=== PATIENT | male | born 1950 | race Caucasian/White ===

== ENCOUNTER 2020-10-05 08:00 | Outpatient (REF) | payer MEDICARE, SELFPAY ==
[2020-10-05 13:17] LABS: Ferritin 80 ng/mL (20-250)
== END 2020-10-05 08:01 | disposition home or self-care (01) ==
LOC: HO.BBR 08:00
PROVIDERS: PCP Internal Medicine; Visit Provider Internal Medicine Gastroenterology
DX: E83.110 Hereditary hemochromatosis (principal)
CPT/HCPCS: 36415; 82728

== ENCOUNTER 2021-01-05 07:53 | Outpatient (REF) | payer MEDICARE, SELFPAY | END 2021-01-05 07:54 | disposition home or self-care (01) | LOC: HO.BBR 07:53 | PROVIDERS: Visit Provider Internal Medicine Gastroenterology | DX: Z13.89 Encounter for screening for other disorder (principal) ==

== ENCOUNTER 2021-01-23 09:11 | Outpatient (REF) | payer MEDICARE, SELFPAY ==
[2021-01-23 14:16] LABS: Ferritin 97 ng/mL (20-250)
== END 2021-01-23 09:12 | disposition home or self-care (01) ==
LOC: HO.BBR 09:11
PROVIDERS: Visit Provider Internal Medicine Gastroenterology
DX: E83.110 Hereditary hemochromatosis (principal)
CPT/HCPCS: 36415; 82728

== ENCOUNTER 2021-04-26 07:59 | Outpatient (REF) | payer MEDICARE, SELFPAY ==
[2021-04-26 09:49] LABS: Ferritin 99 ng/mL (20-250)
== END 2021-04-26 08:00 | disposition home or self-care (01) ==
LOC: HO.BBR 07:59
PROVIDERS: Visit Provider Internal Medicine Gastroenterology
DX: E83.110 Hereditary hemochromatosis (principal)
CPT/HCPCS: 36415; 82728

== ENCOUNTER 2021-07-27 08:09 | Outpatient (REF) | payer MEDICARE, SELFPAY ==
[2021-07-27 10:46] LABS: Ferritin 156 ng/mL (20-250)
== END 2021-07-27 08:10 | disposition home or self-care (01) ==
LOC: HO.BBR 08:09
PROVIDERS: PCP Internal Medicine; Visit Provider Internal Medicine Gastroenterology
DX: E83.110 Hereditary hemochromatosis (principal)
CPT/HCPCS: 36415; 82728

== ENCOUNTER 2021-09-21 08:05 | Outpatient (REF) | payer MEDICARE, SELFPAY ==
[2021-09-21 09:39] LABS: Ferritin 131 ng/mL (20-250)
== END 2021-09-21 08:06 | disposition home or self-care (01) ==
LOC: HO.BBR 08:05
PROVIDERS: Visit Provider Internal Medicine Gastroenterology
DX: E83.110 Hereditary hemochromatosis (principal)
CPT/HCPCS: 36415; 82728

== ENCOUNTER 2021-11-16 08:01 | Outpatient (REF) | payer MEDICARE, SELFPAY ==
[2021-11-16 09:58] LABS: Ferritin 80 ng/mL (20-250)
== END 2021-11-16 08:02 | disposition home or self-care (01) ==
LOC: HO.BBR 08:01
PROVIDERS: Visit Provider Internal Medicine Gastroenterology
DX: E83.110 Hereditary hemochromatosis (principal)
CPT/HCPCS: 36415; 82728

== ENCOUNTER 2022-01-11 08:06 | Outpatient (REF) | payer MEDICARE, SELFPAY ==
[2022-01-11 10:45] LABS: Ferritin 88 ng/mL (20-250)
== END 2022-01-11 08:07 | disposition home or self-care (01) ==
LOC: HO.BBR 08:06
PROVIDERS: Visit Provider Internal Medicine Gastroenterology
DX: E83.110 Hereditary hemochromatosis (principal)
CPT/HCPCS: 36415; 82728

== ENCOUNTER 2022-03-13 08:03 | Outpatient (REF) | payer MEDICARE, SELFPAY ==
[2022-03-13 11:36] LABS: Ferritin 81 ng/mL (20-250)
== END 2022-03-13 08:04 | disposition home or self-care (01) ==
LOC: HO.BBR 08:03
PROVIDERS: Visit Provider Internal Medicine Gastroenterology
DX: E83.110 Hereditary hemochromatosis (principal)
CPT/HCPCS: 36415; 82728

== ENCOUNTER 2022-05-08 10:57 | Outpatient (REF) | payer MEDICARE, SELFPAY ==
[2022-05-08 12:34] LABS: Ferritin 46 ng/mL (20-250)
== END 2022-05-08 10:58 | disposition home or self-care (01) ==
LOC: HO.BBR 10:57
PROVIDERS: Visit Provider Internal Medicine Gastroenterology
DX: E83.110 Hereditary hemochromatosis (principal)
CPT/HCPCS: 36415; 82728

== ENCOUNTER 2022-07-04 08:06 | Outpatient (REF) | payer MEDICARE, SELFPAY ==
[2022-07-04 09:51] LABS: Ferritin 51 ng/mL (20-250)
== END 2022-07-04 08:07 | disposition home or self-care (01) ==
LOC: HO.BBR 08:06
PROVIDERS: PCP Family Medicine; Visit Provider Internal Medicine Gastroenterology
DX: E83.110 Hereditary hemochromatosis (principal)
CPT/HCPCS: 36415; 82728

== ENCOUNTER 2022-08-29 09:07 | Outpatient (REF) | payer MEDICARE, SELFPAY | END 2022-08-29 09:08 | disposition home or self-care (01) | LOC: HO.BBR 09:07 | PROVIDERS: Visit Provider Internal Medicine Gastroenterology | DX: Z13.89 Encounter for screening for other disorder (principal) ==

== ENCOUNTER 2022-10-24 08:10 | Outpatient (REF) | payer MEDICARE, SELFPAY ==
[2022-10-24 10:27] LABS: Ferritin 37 ng/mL (20-250)
== END 2022-10-24 08:11 | disposition home or self-care (01) ==
LOC: HO.BBR 08:10
PROVIDERS: Visit Provider Internal Medicine Gastroenterology
DX: E83.110 Hereditary hemochromatosis (principal)
CPT/HCPCS: 36415; 82728

== ENCOUNTER 2022-12-05 08:07 | Outpatient (REF) | payer MEDICARE, SELFPAY ==
[2022-12-05 10:15] LABS: Ferritin 42 ng/mL (20-250)
== END 2022-12-05 08:08 | disposition home or self-care (01) ==
LOC: HO.BBR 08:07
PROVIDERS: Visit Provider Internal Medicine Gastroenterology
DX: E83.110 Hereditary hemochromatosis (principal)
CPT/HCPCS: 36415; 82728

== ENCOUNTER 2023-01-29 08:01 | Outpatient (REF) | payer MEDICARE, SELFPAY ==
[2023-01-29 10:19] LABS: Ferritin 29 ng/mL (20-250)
== END 2023-01-29 08:02 | disposition home or self-care (01) ==
LOC: HO.BBR 08:01
PROVIDERS: Visit Provider Internal Medicine Gastroenterology
DX: E83.110 Hereditary hemochromatosis (principal)
CPT/HCPCS: 36415; 82728

== ENCOUNTER 2023-03-26 08:04 | Outpatient (REF) | payer MEDICARE, SELFPAY ==
[2023-03-26 10:00] LABS: Ferritin 26 ng/mL (20-250)
== END 2023-03-26 08:05 | disposition home or self-care (01) ==
LOC: HO.BBR 08:04
PROVIDERS: Visit Provider Internal Medicine Gastroenterology
DX: E83.110 Hereditary hemochromatosis (principal)
CPT/HCPCS: 36415; 82728

== ENCOUNTER 2023-05-21 08:14 | Outpatient (REF) | payer MEDICARE, SELFPAY ==
[2023-05-21 10:15] LABS: Ferritin 74 ng/mL (20-250)
== END 2023-05-21 08:15 | disposition home or self-care (01) ==
LOC: HO.BBR 08:14
PROVIDERS: Visit Provider Internal Medicine Gastroenterology
DX: E83.110 Hereditary hemochromatosis (principal)
CPT/HCPCS: 36415; 82728

== ENCOUNTER 2023-07-25 11:01 | Outpatient (REF) | payer MEDICARE, SELFPAY | END 2023-07-25 11:02 | disposition home or self-care (01) | LOC: HO.BBR 11:01 | PROVIDERS: Visit Provider Internal Medicine Gastroenterology | DX: Z13.89 Encounter for screening for other disorder (principal) ==

== ENCOUNTER 2023-09-26 08:00 | Outpatient (REF) | payer MEDICARE, SELFPAY ==
[2023-09-26 09:41] LABS: Ferritin 38 ng/mL (20-250)
== END 2023-09-26 08:01 | disposition home or self-care (01) ==
LOC: HO.BBR 08:00
PROVIDERS: Visit Provider Internal Medicine Gastroenterology
DX: E83.110 Hereditary hemochromatosis (principal)
CPT/HCPCS: 36415; 82728

== ENCOUNTER 2023-11-21 08:03 | Outpatient (REF) | payer MEDICARE, SELFPAY ==
[2023-11-21 10:21] LABS: Ferritin 25 ng/mL (20-250)
== END 2023-11-21 08:04 | disposition home or self-care (01) ==
LOC: HO.BBR 08:03
PROVIDERS: PCP Family Medicine; Visit Provider Internal Medicine Gastroenterology
DX: E83.110 Hereditary hemochromatosis (principal)
CPT/HCPCS: 36415; 82728

== ENCOUNTER 2024-01-23 08:09 | Outpatient (REF) | payer MEDICARE, SELFPAY ==
[2024-01-23 09:49] LABS: Ferritin 22 ng/mL (20-250)
== END 2024-01-23 08:10 | disposition home or self-care (01) ==
LOC: HO.BBR 08:09
PROVIDERS: PCP Family Medicine; Visit Provider Internal Medicine Gastroenterology
DX: E83.110 Hereditary hemochromatosis (principal)
CPT/HCPCS: 36415; 82728

== ENCOUNTER 2024-03-20 07:58 | Outpatient (REF) | payer MEDICARE, SELFPAY ==
[2024-03-20 09:52] LABS: Ferritin 21 ng/mL (20-250)
== END 2024-03-20 07:59 | disposition home or self-care (01) ==
LOC: HO.BBR 07:58
PROVIDERS: PCP Family Medicine; Visit Provider Internal Medicine Gastroenterology
DX: E83.110 Hereditary hemochromatosis (principal)
CPT/HCPCS: 36415; 82728

== ENCOUNTER 2024-05-20 08:08 | Outpatient (REF) | payer MEDICARE, SELFPAY ==
[2024-05-20 09:56] LABS: Ferritin 17 ng/mL (20-250)
== END 2024-05-20 08:09 | disposition home or self-care (01) ==
LOC: HO.BBR 08:08
PROVIDERS: PCP Family Medicine; Visit Provider Internal Medicine Gastroenterology
DX: E83.110 Hereditary hemochromatosis (principal)
CPT/HCPCS: 36415; 82728

== ENCOUNTER 2024-07-16 07:58 | Outpatient (REF) | payer MEDICARE, SELFPAY ==
[2024-07-16 10:16] LABS: Ferritin 18 ng/mL (20-250)
== END 2024-07-16 07:59 | disposition home or self-care (01) ==
LOC: HO.BBR 07:58
PROVIDERS: PCP Family Medicine; Visit Provider Internal Medicine Gastroenterology
DX: E83.110 Hereditary hemochromatosis (principal)
CPT/HCPCS: 36415; 82728

== ENCOUNTER 2024-09-17 08:04 | Outpatient (REF) | payer MEDICARE, SELFPAY ==
[2024-09-17 10:21] LABS: Ferritin 17 ng/mL (20-250)
== END 2024-09-17 08:05 | disposition home or self-care (01) ==
LOC: HO.BBR 08:04
PROVIDERS: PCP Family Medicine; Visit Provider Internal Medicine Gastroenterology
DX: E83.110 Hereditary hemochromatosis (principal)
CPT/HCPCS: 36415; 82728

== ENCOUNTER 2024-11-12 08:04 | Outpatient (REF) | payer MEDICARE, SELFPAY ==
[2024-11-12 09:55] LABS: Ferritin 17 ng/mL (20-250)
== END 2024-11-12 08:05 | disposition home or self-care (01) ==
LOC: HO.BBR 08:04
PROVIDERS: PCP Family Medicine; Visit Provider Internal Medicine Gastroenterology
DX: E83.110 Hereditary hemochromatosis (principal)
CPT/HCPCS: 36415; 82728

== ENCOUNTER 2025-01-14 14:06 | Outpatient (REF) | payer MEDICARE, SELFPAY ==
--- OUTSIDE RECORDS SUMMARY | 2025-01-14 15:15 | XMS_ITS | Encounter Summary ---
Author Organization [facility] and [facility] Address [address] [place] [phone] Care Team Providers Care Adhesive Bandage Machine Operator Name Role Phone Sahil Ryan MD Primary Care Provider Unavaila ble Encounter Details Date Type Department Care Team (Late st Contact Info) Description 04/09/2016 Scanned Document Dermatologic Surgery [address] [id number] Jos Sewell MD 160 [facility] 104 [place] [phone] Social History Tobacco Use Types Packs/Day Years Used Date Smoking Tobacco: Never Alcohol Use Standard Drinks/Week Comments Yes 0 (1 standard drink = 0.6 oz pur e alcohol) Sex and Gender Information Value Date Recorded Sex Assigned at Not on file Legal Sex Male 7:41 AM EST Gender Identity Not on file Sexual Orientation Not on file documented as of this encounter Plan of Treatment Not on file documented as of this encounter Procedures Procedure Name Priority Date/Time Associated Diagnosis Comments PATHOLOGY/CYTOLOGY SCAN Routine 12/27/2015 documented in this encounter Results * Pathology/Cytology Scan (12/27/2015) us Jos Sewell MD PATHOLOGY/CYTOLOGY ORDERABLES Final Result [facility] [place], [place], [facility] documented in this encounter Visit Diagnoses Not on filedocumented in this encounter Care Teams Adhesive Bandage Machine Operator Relationship Specialty Start Date End Date Sahil Ryan MD PCP - General Internal Medicine 03/09/13 documented as of this encounter
--- OUTSIDE RECORDS SUMMARY | 2025-01-14 15:15 | XMS_ITS | Continuity of Care Document ---
Author Organization [facility] Address [address] [facility] [address] [place] [phone] Phone Care Team Providers Care Cook Supervisor Name Role Phone Jessenia MANCILLA, Akhil Unavailable Unavailable Allergies, Adverse Reactions, Alerts Substance Reaction Status Criticality penicillin G Active No Information Procedures Procedure Date Duplex Scan-extrem Veins; Uni/ 15 Inj Scleros Solut; Mx Veins 1 5 Ultrason Guidan Needle Bx-rad 5 Duplex Scan-extrem Veins; Uni/ 15 Endovenous Laser, Vein Endovenous Laser, Vein Endovenous Laser, Vein Office/Outpt E&M Established 25 Mins May Duplex Scan-extrem Veins; Uni/ 15 Duplex Scan-extrem Veins; / 15 Endovenous Laser, Vein Endovenous Laser, Vein Endovenous Laser, Vein Endovenous Laser, Vein Duplex Scan-extrem Veins; Uni/ 15 Endovenous Rf, Vein Duplex Scan-extrem Veins; / 15 Endovenous Rf, Vein Unlisted Proc Vascular Surg Office/Oupt E&M New Pt 45 Mins 15 Duplex Scan-extrem Veins; Comp 15 Advance Directives Directive Yes / No Effective Date File Name No Information Encounters Encounter Description Practice Location Reason(s) For Visit Diagnoses Date Provider Providers Copied on Encounter [facility], [address] [place] [address], [id number], tel:[phone] [place] No Information 5 Jessenia Landaverde. [address] [place] [address], [id number] , . tel: [phone] Referring Provider: Akhil Millard, [address], [address] . tel:[phone] [facility], [address] [place] [address], [id number], tel:[phone] [place] No Information 5 Jessenia Landaverde. [address] [place] [address], [id number] , [place]. tel: [phone] Referring Provider: Akhil Millard, [address] [place] [address], [id number] . tel:[phone] [facility], [address] [place] [address], [id number], tel:[phone] [place] No Information 5 Jessenia Landaverde. [address] [place] [address], [id number] , [place]. tel: [phone] Referring Provider: Akhil Millard, [address] [place] [address], [id number] . tel:[phone] [facility], [address] [place] [address], [id number], [place] tel:[phone] [place] Varicose Vein Of Leg Nos 5 Jessenia Landaverde. [address] [place] [address], [id number] , [place]. tel: [phone] Referring Provider: Akhil Millard, [address] [place] [address], [address] . tel:[phone] [facility], [address] [place] [address], [id number], [place] tel:[phone] [place] No Information 5 Jessenia Landaverde. [address] [place] [address], [id number] , [place]. tel: [phone] Referring Provider: Akhil Millard, [address] [place] [address], [id number] . tel:[phone] [facility], [address] [place] [address], [id number], [place] tel:[phone] [place] No Information 5 Jessenia Landaverde. [address] [place] [address], [id number] , [place]. tel: [phone] Referring Provider: Akhil Millard, [address] [place] [address], [id number] . tel:[phone] [facility], [address] [place] [address], [id number], [place] tel:[phone] [place] No Information 5 Jessenia Landaverde. [address], [id number] , [place]. tel: [phone] Referring Provider: Akhil Millard, [address] [place] [address], [id number] . tel:[phone] Office/Outpt E&M Established 25 Mins [facility], [address] [place] [address], [id number], [place] tel:[phone] [place] Swelling Of LimbLeg Varicosity W InflamVenous (peripheral) insufficiency, unspecified 5 Jessenia Landaverde. [address], [id number] , [place]. tel:[phone] Referring Provider: Akhil Millard, [address], [address] . tel:[phone] [facility], [address] [place] [address], [id number], tel:[phone] [place] No Information 5 Jessenia Landaverde. [address], [id number] , [place]. tel:[phone] Referring Provider: Akhil Millard, [address], [address] . tel:[phone] [facility], [address] [place] [address], [id number], [place] tel:[phone] [place] No Information 5 Jessenia Landaverde. [address] [place] [address], [id number] , [place]. tel:[phone] Referring Provider: Akhil Millard, [address], [address] . tel:[phone] [facility], [address] [place] [address], [id number], [place] tel:[phone] [place] No Information 5 Jessenia Landaverde. [address] [place] [address], [id number] , [place]. tel: [phone] Referring Provider: Akhil Millard, [address], [address] . tel:[phone] [facility], [address] [place] [address], [id number], [place] tel:[phone] [place] - [place] No Information Diego-3 0-201 5 Jessenia Landaverde. [address] [place] [address], [id number] , . tel: [phone] Referring Provider: Akhil Millard, [address] [place] [address], [address] . tel:[phone] [facility], [address] [place] [address], [id number], tel:[phone] [place] - [place] No Information Diego-2 6-201 5 Jessenia Landaverde. [address] [place] [address], [id number] , . tel: [phone] Referring Provider: Akhil Millard, [address] [place] [address], [address] . tel:[phone] [facility], [address] [place] [address], [id number], tel:[phone] [place] No Information Diego-2 6 5 Jessenia Landaverde. [address] [place] [address], [id number] , . tel: [phone] Referring Provider: Akhil Millard, [address] [place] [address], [address] . tel:[phone] [facility], [address] [place] [address], [id number], tel:[phone] [place] No Information Apr-2 3-201 5 Jessenia Landaverde. [address] [place] [address], [id number] , . tel: [phone] Referring Provider: Akhil Millard, [address] [place] [address], [address] . tel:[phone] [facility], [address] [place] [address], [id number], tel:[phone] [place] No Information Apr- 3 5 Jessenia Landaverde. [address], [id number] , . tel: [phone] Referring Provider: Akhil Millard, [address], [address] . tel:[phone] [facility], [address] [place] [address], [id number], tel:[phone] [place] No Information Apr- 8 5 Jessenia Landaverde. [address] [place] [address], [id number] , . tel: [phone] Referring Provider: Akhil Millard, [address] [place] [address], [address] . tel:[phone] [facility], [address] [place] [address], [id number], tel:[phone] [place] No Information 5 Jessenia Landaverde. [address] [place] [address], [id number] , . tel: [phone] Referring Provider: Akhil Millard, [address] [place] [address], [address] . tel:[phone] [facility], [address] [place] [address], [id number], [place] tel:[phone] [place] No Information 5 Jessenia Landaverde. [address] [place] [address], [id number] , . tel: [phone] Referring Provider: Akhil Millard, [address] [place] [address], [id number] . tel:[phone] [facility], [address] [place] [address], [id number], [place] tel:[phone] [place] No Information 5 Jessenia Landaverde. [address] [place] [address], [id number] , . tel: [phone] Referring Provider: Akhil Millard, [address] [place] [address], [address] . tel:[phone] [facility], [address] [place] [address], [id number], [place] tel:[phone] [place] Leg Varicosity W Inflam 5 Jessenia Landaverde. [address] [place] [address], [id number] , . tel: [phone] Referring Provider: Akhil Millard, [address] [place] [address], [address] . tel:[phone] Office/Oupt E&M New Pt 45 Mins [facility], [address] [place] [address], [id number], [place] tel:[phone] [place] varicose vns low extrem w/othPain In LimbDyschromia NosSwelling Of Limb 5 Jessenia Landaverde. [address], [id number] , [place]. tel: [phone] Referring Provider: Akhil Millard, [address] [place] [address], [id number] . tel:[phone] [facility], [address] [place] [address], [id number], [place] tel:[phone] [place] chronic venous htn without com 5 Jessenia Landaverde. [address] [place] [address], [id number] , [place]. tel: [phone] Referring Provider: Akhil Millard, [address] [place] [address] [address], [place], [address] . tel:[phone] Family History Family Member Type Diagnosis Age At Onset No Information Payers Payer name Insurance type Covered alliance party ID Authorcourtney guzman(s) Medicare [place] [id number] [facility] [id number] Social History Type Description Quantity Date Captured Comments Sex Male Smoking Status No Information Chief Complaint And Reason For Visit No Information Reason For Referral Reason For Referral No Information History Of Present Illness Encounter Date Complaint History Of Prese nt Illness No Information Functional Status Date Functional Assessmen t No Information Instructions Date Instruction Additional Infor damien Continue compression stocking us e Pre and post instructions review ed and provided Continue compression stocking us e Pre and post instructions review ed and provided Assessments Type Assessment Date No Information Patient Care Teams Name Effective Dates (start - stop) Status Members No Information
--- OUTSIDE RECORDS SUMMARY | 2025-01-14 15:15 | XMS_ITS | Encounter Summary ---
Author Organization [facility] and [facility] Address [address] [place] [id number] Care Team Providers Care Press Tender Long Goods Name Role Phone Sahil Ryan MD Primary Care Provider Unavaila ble Encounter Details Date Type Department Care Team (Late st Contact Info) Description 06/24/2015 Scanned Document Dermatologic Surgery [address] [id number] Jos Sewell MD 160 [facility] 104 [place] [phone] Social History Tobacco Use Types Packs/Day Years [...] Date/Time Associated Diagnosis Comments PATHOLOGY/CYTOLOGY SCAN Routine 03/22/2015 documented in this encounter Results * Pathology/Cytology Scan (03/22/2015) us Jos Sewell MD PATHOLOGY/CYTOLOGY ORDERABLES Final Result [facility] [place], [place], [facility] documented in this encounter Visit Diagnoses Not on filedocumented in this encounter Care Teams Press Tender Long Goods Relationship Specialty Start Date End Date Sahil Ryan MD PCP - General Internal Medicine 03/09/13 documented as of this encounter
--- OUTSIDE RECORDS SUMMARY | 2025-01-14 15:15 | XMS_ITS | Clinical Summary ---
Author Organization [facility] Address [address] [place] [address] Care Team Providers Care Binder And Box Builder Name Role Phone Unavailable Primary Care Provider Unavailabl e Social History Tobacco Use Types Packs/Day Years Used Date Smoking Tobacco: Never Assessed Sex and Gender Information Value Date Recorded Sex Assigned at Not on file Gender Identity Not on file Sexual Orientation Not on file Plan of Treatment Health Maintenance Due Date Last Done Comments Hepatitis C Virus Screening 1950 DTaP/Tdap/Td Vaccines (1 - Tdap) 1967 Pneumococcal Vaccines 50+ (1 of 1 - PCV) 1998 Zoster (Shingles) Vaccine (1 of 2) 1998 RSV Vaccine 60 years and older and Patients (1 - 1-dose 75+ series) 2023 COVID-19 Vaccine ( season) 2024 02/22/2021, 01/25/2021 Influenza Vaccine Discontinued 09/08/2023, , 10/20/2021, Additional history exists Hepatitis B Vaccines Aged Out No long er eligible based on patient's age to complete this topic
--- OUTSIDE RECORDS SUMMARY | 2025-01-14 15:15 | XMS_ITS | Clinical Summary ---
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/10/2013 Family History Medical History Relation Name Comments Cancer Mother Cancer, Non-Melanoma Skin Cancer Neg Hx Melanoma Neg Hx Relation Name Status Comments Father Mother Social History Tobacco Use Types Packs/Day Years Used Date Smoking Tobacco: Never Alcohol Use Standard Drinks/Week Comments Yes 0 (1 standard drink = 0.6 oz pur e alcohol) Sex and Gender Information Value Date Recorded Sex Assigned at Not on file Legal Sex Male 7:41 AM EST Gender Identity Not on file Sexual Orientation Not on file Last Filed Vital Signs Vital Sign Reading Time Taken Comments Blood Pressure 134/86 04/05/2016 10:22 AM EDT Pulse 98 04/05/2016 10:22 AM EDT Temperature - - Respiratory Rate - - Oxygen Saturation - - Inhaled Oxygen Concentration - - Weight 88.5 kg (195 lb) 04/05/2016 10:22 AM EDT Height 188 cm (6' 2 ) 04/05/2016 10:22 AM EDT Body Mass Index 25.04 04/05/2016 10:22 AM EDT Plan of Treatment Health Maintenance Due Date Last Done Comments HIV screening 1961 Hepatitis C screening 1966 Tetanus adult (Td q 10,TDAP once) 1968 Lipid disorder screening 1988 Diabetes screening 1993 Shingles vaccine (Shingrix) (1 of 2 - Shingrix (RZV) 2 Dose Standard Series) 1998 Pneumococcal Vaccine (50+ ye ars) (1 of 1 - PCV) 2013 RSV Discussion (1 - 1-dose 7 5+ series) 2023 Influenza vaccine 06/25/2024 Covid-19 vaccine series ( - 2023- season) 2024 Meningococcal Vaccine Aged Out No heike veronica eligible based on patient's age to complete this topic Insurance MEDICARE [facility] MEDICARE [facility] MEDICARE [facility] MEDICARE AARP Care Teams Turbinated Bone Grinder Relationship Specialty Start Date End Date Sahil Ryan MD PCP - General Internal Medicine 03/09/13
[2025-01-14 15:26] LABS: Ferritin 20 ng/mL (20-250)
== END 2025-01-14 14:07 | disposition home or self-care (01) ==
LOC: HO.BBR 14:06
PROVIDERS: PCP Family Medicine; Visit Provider Internal Medicine Gastroenterology
DX: E83.110 Hereditary hemochromatosis (principal)
CPT/HCPCS: 36415; 82728

== ENCOUNTER 2025-04-14 13:57 | Outpatient (REF) | payer MEDICARE, SELFPAY ==
--- OUTSIDE RECORDS SUMMARY | 2025-04-14 14:26 | XMS_ITS | Clinical Summary ---
Author Organization [facility] Address [address] [place] [address] Care Team Providers Care Frit Burner Name Role Phone Unavailable Primary Care Provider Unavailabl e Social History Tobacco Use Types Packs/Day Years Used Date Smoking Tobacco: Never Assessed Sex and Gender Information Value Date Recorded Sex Assigned at Not on file Legal Sex Male 8:50 AM EDT Gender Identity Not on file Sexual Orientation [...] 1-dose 75+ series) 2023 COVID-19 Vaccine ( - season) 2024 02/22/2021, 01/25/2021 Influenza Vaccine Discontinued 09/08/2023, , 10/20/2021, Additional history exists Hepatitis B Vaccines Aged Out No long er eligible based on patient's age to complete this topic
--- OUTSIDE RECORDS SUMMARY | 2025-04-14 14:26 | XMS_ITS | Encounter Summary ---
Author Organization [facility] Address [address] [place] [phone] Care Team Providers Care Burglar Alarm Operator Name Role Phone Sahil Ryan MD Primary Care Provider Unavaila ble Encounter Details Date Type Department Care Team (Late st Contact Info) Description 04/09/2016 Scanned Document Dermatologic Surgery [address] [id number] Jos Sewell MD 160 [facility] 104 [place] [phone] Social History Tobacco Use Types Packs/Day Years [...] Jos Sewell MD PATHOLOGY/CYTOLOGY ORDERABLES Final Result [facility] [place], [place], [facility] documented in this encounter Visit Diagnoses Not on filedocumented in this encounter Care Teams Burglar Alarm Operator Relationship Specialty Start Date End Date Sahil Ryan MD PCP - General Internal Medicine 03/09/13 documented as of this encounter
--- OUTSIDE RECORDS SUMMARY | 2025-04-14 14:26 | XMS_ITS | Clinical Summary ---
Author Organization [address] [address] Care Team Providers Care Student Truck Driver Name Role Phone Sahil Ryan MD Primary [...] Lipid disorder screening 1988 Diabetes screening 1993 Pneumococcal Vaccine (50+ ye ars) (1 of 1 - PCV) 1998 Shingles vaccine (Shingrix) (1 of 2 - Shingrix (RZV) 2 Dose Standard Series) 1998 RSV Immunization (1 - 1-dose 75+ series) 2023 Covid-19 vaccine series (1 - 2023- season) 2024 Influenza vaccine 07/26/2025 Colon cancer screening, Colonoscopy Discontinued Meningococcal Vaccine Aged Out No heike veronica eligible based on patient's age to complete this topic Insurance MEDICARE [facility] MEDICARE [facility] MEDICARE [facility] MEDICARE AARP Care Teams Student Truck Driver Relationship Specialty Start Date End Date Sahil Ryan MD PCP - General Internal Medicine 03/09/13
--- OUTSIDE RECORDS SUMMARY | 2025-04-14 14:26 | XMS_ITS | Encounter Summary ---
Author Organization [facility] and [facility] Address [address] [place] [phone] Care Team Providers Care Swift Tender Name Role Phone Sahil Ryan MD Primary Care Provider Unavaila ble Encounter Details Date Type Department Care Team (Late st Contact Info) Description 06/24/2015 Scanned Document Dermatologic Surgery [address] [phone] Jos Sewell MD 160 [facility] 104 [place] [phone] Social History Tobacco Use Types Packs/Day Years [...] Jos Sewell MD PATHOLOGY/CYTOLOGY ORDERABLES Final Result [facility] [place], [place], [facility] documented in this encounter Visit Diagnoses Not on filedocumented in this encounter Care Teams Swift Tender Relationship Specialty Start Date End Date Sahil Ryan MD PCP - General Internal Medicine 03/09/13 documented as of this encounter
[2025-04-14 15:25] LABS: Ferritin 13 ng/mL (20-250)
== END 2025-04-14 13:58 | disposition home or self-care (01) ==
LOC: HO.BBR 13:57
PROVIDERS: PCP Family Medicine; Visit Provider Internal Medicine Gastroenterology
DX: E83.110 Hereditary hemochromatosis (principal)
CPT/HCPCS: 36415; 82728

== ENCOUNTER 2025-08-12 14:56 | Outpatient (REF) | payer MEDICARE, SELFPAY ==
--- OUTSIDE RECORDS SUMMARY | 2025-08-09 10:00 | XMS_ITS | Encounter Summary ---
Author Organization [facility] Address [address] [facility] [address] [place] [address] Phone Care Team Providers Care Hot Stick Worker Name Role Phone Sahil Quick MD Unavailable [phone] Thelma Foster MD Unavailable [phone] Scottie Mena DO Unavailable [phone] Candy Colón MD Primary Care Provider [phone] Candy Colón MD Unavailable [phone] Reason for Visit * Physical Therapy (Within 1 month) - Authorized Specialty Diagnoses / Procedures Referred By Jan jason Referred To Contact Physical Therapy Diagnoses Primary osteoarthritis of left hip Rotator cuff impingement syndrome of right shoulder Oscar Odell MD [address] [place] [address] [facility] [place] [address] Phone: tel: fax: [email or web address] [address] [place] [address] Phone: tel: Referral ID Status Reason Start Date Expiration Date V isits Requested Visits Authorized [id number] Authorized 06/28/2025 06/28/2026 99 99 Encounter Details Date Type Department Care Team (Latest Contact Info) Description 08/09/2025 10:00 AM EDT Office Visit [facility] [address] [place] [address] [id number] Oscar Odell MD [address] [place] [address] [facility] [place] [address] Meme Baldwin, PT 4 [place] [address] [email or web address] Right shoulder pain, unspecified chronicity (Primary Dx) Social History Tobacco Use Types Packs/Day Years Used Date Smoking Tobacco: Never Passive Smoke Exposure: Past Smokeless Tobacco: Never Alcohol Use Standard Drinks/Week Comments Yes 0 (1 standard drink = 0.6 oz pur e alcohol) 3-4 drinks per week Child or Family Care Answer Date Record ed Do you have problems with on e of the following making it difficult for you to work, study, or receive health care? No 11/05/2024 Education Answer Date Recorded Are you interested in more education? Not on jose e 10/28/2024 Are you concerned about learning? Not on file 10/28/2024 No 10/28/2024 No 10/28/2024 Food Answer Date Recorded Within the past 6 months we worried whether our food would run out before we got money to buy more. Never True 11/05/2024 Within the past 6 months the food we bought just didn't last and we didn't have enough money to get more. Never True Residential Stability Answer Date Recor ded What is your housing situation today? I have drew sing 11/05/2024 How many times have you move d in the past 12 months? Zero (I did not move) 11/05/2024 Paying for Meds Answer Date Recorded Do you have trouble paying for medicines? No 11/05/2024 Paying Utility Bills Answer Date Record ed Do you have trouble paying your heating or elect ricity bill? No 11/05/2024 Transportation Answer Date Recorded Has the lack of transportati on kept you from medical appointments or from getting medications? No 11/05/2024 Unemployment Answer Date Recorded Are you currently unemployed or working on a part-time or temporary basis, and looking for work? No 10/28/2022 Digital Access Answer Date Recorded No 11/05/2024 Yes 11/05/2024 Do you have reliable internet access at home? Ye s 11/05/2024 Do you have a device (e.g., phone, tablet, computer) with a working camera? Yes 11/05/2024 Intimate Partner Violence Answer Date R ecorded Are you denied basic needs s uch as food, clothing, or medical care? No 01/22/2025 In the past 12 months have y ou been in a relationship with a person who hurts, threatens, or tries to control you? No 01/22/2025 Are you denied basic needs s uch as food, clothing, or medical care? No 01/22/2025 In the past 12 months have y ou been in a relationship with a person who hurts, threatens, or tries to control you? No 01/22/2025 Sex and Gender Information Value Date Recorded Sex Assigned at Male 02/16/2021 10:28 PM EDT Legal Sex Male 10:05 PM EDT Gender Identity Male 02/16/2021 10:28 PM EDT Sexual Orientation Straight 02/16/2021 10 :28 PM EDT documented as of this encounter Progress Notes * Meme Baldwin, PT - 08/09/2025 10:00 AM EDT Images from the original note were not included. Physical Therapy Treatment Note Patient Name: Clinton Ling Date of : 1950 This patient has attended 2 visits since the onset Physical Therapy. Referring MD: Oscar Odell MD [address] [place] [address] [facility], [facility] [place] [address] Right shoulder pain, unspecified chronicity [M25.511] Precautions: Cardiac History Participated in cardiac rehab d/t stent placement in Sep 2024 (now going to gym) Orthostatic Hypotension - medications have helped with symptoms Afib Possible ME prior to stent placement Low Ejection fraction 45% Subjective comments: Pt states hip is more irritable today than the shoulder. Pain comments pre-treatment: Hip hurts Shoulder is just a little tender Objective Measures: Posture/Observation: Trunk lean to left with mild dowager Range of Motion: Shoulder AROM PROM Right Left Right Left Flexion 145 155 150 160 Extension 65 65 NT NT Abduction 128 165 145 WFL Internal Rotation (neutral) abdomen abdomen abdomen abdomen External Rotation (neutral) NT NT NT NT Internal Rotation (45 degrees of abd) abdomen abdomen abdomen abdomen External Rotation (45 degrees of abd) 45 65 NT NT Strength: SHOULDER Right Left Flexion 4/5 4+/5 Extension NT NT Abduction 4-/5 4/5 Internal Rotation 4/5 4/5 External Rotation 4-/5 4-/5 ELBOW Right Left Flexion 4/5 4/5 Extension 4-/5* 4/5 Palpation: TTP over L biceps tendon and teres minor Special Tests: Test Right Left Subacromial Impingement Neer + Hawkin-Isiah AC joint Cross body adduction + Rotator Cuff Full can Empty can Drop arm Lift off Biceps Speed's + SLAP tear Crank Biceps load II (-) for all other tests Outcome Measures: Proms Shoulder Pain And Disability Index (Spadi) Submitted 07/30/25 PROMs SPADI Total Pain Score 16 PROMs SPADI Total Disability Score 16.25 PROMs Total SPADI Score 16.15 Interventions: See encounter report for minutes associated with each intervention. [x]UBE 3' fwd, 3'bwd- level 5 [x]Wall slides flexion and scaption x 10 each [x]Dowel exercises in supine- flexion, abduction, ER 2 x 10 each [x]Chest stretch seated 3 x 30 []Rows []B shoulder ER Home Exercise Program: Access Code: [email or web address] URL: [email or web address] Date: 08/09/2025 Prepared by: Meme Baldwin Exercises - Supine Shoulder Flexion Extension AAROM with Dowel - 1-2 x daily - 7 x weekly - 1-2 sets - 10 reps - Supine Shoulder External Rotation with Dowel - 1-2 x daily - 7 x weekly - 1-2 sets - 10 reps - Supine Shoulder Abduction AAROM with Dowel - 1-2 x daily - 7 x weekly - 1-2 sets - 10 reps - Shoulder Flexion Wall Slide with Towel - 1-2 x daily - 7 x weekly - 1-2 sets - 10 reps - Standing Shoulder Abduction Slides at Wall - 1-2 x daily - 7 x weekly - 1-2 sets - 10 reps - Seated Thoracic Lumbar Extension with Pectoralis Stretch - 1 x daily - 7 x weekly - 1 sets - 3 reps - 30 seconds hold Assessment: Provided ROM activities for mobility. Pt was able to tolerate them with minimal to no shoulder painhowever noted hip pain with standing. Limited standing as a result. Plan: Continue with ROM and strengthening Meme Baldwin, [place] [id number] documented in this encounter Plan of Treatment Upcoming Encounters Date Type Department Care Team (Late st Contact Info) Description 08/18/2025 11:45 AM EDT Office Visit [address] [address] Oscar Odell MD [address] [place] [address] Orthopedics Sports [facility], [place] [address] Meme Baldwin, PT [address] [place] [address] [email or web address] 08/20/2025 8:30 AM EDT Office Visit [address] [address] Oscar Odell MD [address] [place], [place] [address]s Sports [facility], [place] [address] Meme Baldwin, PT [address] [place] [address] [email or web address] 08/24/2025 10:45 AM EDT Office Visit [address] [address] Oscar Odell MD [address] [place], [place] [address]s Sports [facility], [place] [address] Meme Baldwin, PT [address] [place] [address] 08/26/2025 9:00 AM EDT Office Visit [address] [phone] Oscar Odell MD [address] [place] [address] Orthopedics [facility] [address] Della Reeves TUBERCULOSIS SPECIALIST [address] [place] [address] 2025 10:30 AM EDT Office Visit [address] [address] Oscar Odell MD [address] [place] [address] [facility] [address] Della Reeves PTA [address] [place] [address] 09/03/2025 8:30 AM EDT Office Visit [address] [address] Oscar Odell MD [address] [place] [address] Sports [facility], [place] [address] Meme Baldwin, PT [address] [place] [address] 10/18/2025 8:40 AM EST Office Visit [facility] Primary [address] [place] [address] Candy Colón MD [address] [place] [address] 11/23/2025 8:40 AM EST Office Visit [facility] Primary [address] [place] [address] Candy Colón MD [address] [place] [place] [address] 11/29/2025 Procedure Pass OR Admitting Dept - Virtual Department 30 [place] [address] 01/11/2026 8:40 AM EST Office Visit [facility] [address] [facility] 3rd Floor, [address] [place] [address] Jorge Alberto Iglesias MD 22 [facility], [address] [address] [email or web address] documented as of this encounter Visit Diagnoses Diagnosis Right shoulder pain, unspecified chronicity- Primary documented in this encounter Additional Health Concerns Assessment Noted Time PHQ-9 Depression Total Score: 1 12/03/19 25 9:57 AM EST PHQ-2 Depression Total Score: 0 11/05/20 24 10:03 AM EST documented as of this encounter Care Teams Hot Stick Worker Relationship Specialty Start Date End Date Candy Colón MD [address] [place] [address] PCP - General Family Medicine 05/01/22 Sahil Quick MD [address] [place] [address] Gastroenterology 10/10/20 Thelma Foster MD [address] [address] Dermatology 10/10/20 Scottie Mena DO [address], [place] [address] Cardiology 10/22/21 Candy Colón MD [address] [place] [address] [email or web address] Insurance Assigned Provider 02/29/24 documented as of this encounter Additional Source Comments The information contained in this document represents components of the legal health record. It is not the complete legal health record.[facility]
--- OUTSIDE RECORDS SUMMARY | 2025-08-12 16:35 | XMS_ITS | Encounter Summary ---
Author Organization [facility] Address [address] [place] [address] Phone Care Team Providers Care Talent Rep Name Role Phone Sahil Quick MD Unavailable [phone] Thelma Foster MD Unavailable [phone] Scottie Mena DO Unavailable [phone] Candy Colón MD Primary Care Provider [phone] Cadny Colón MD Unavailable [phone] Encounter Details Date Type Department Care Team (Late st Contact Info) Description 10/19/2024 Procedure Pass [facility] [place] [place] [address] Social History Tobacco Use Types Packs/Day Years [...] work, study, or receive health care? No 11/03/2023 Education Answer Date Recorded Are you interested in help w ith more adult education (for example, completing high school, GED, job training, learning the [place]ym[place] language, technical skills, or developing parenting skills)? No 10/28/2022 Food Answer Date Recorded Within the past 6 months we worried whether our food would run out before we got money to buy more. Never True 11/03/2023 Within the past 6 months the food we bought just didn't last and we didn't have enough money to get more. Never True Residential Stability Answer Date Recor ded What is your housing situation today? I have drew malik 11/03/2023 How many times have you move d in the past 12 months? Zero (I did not move) 11/03/2023 Paying for Meds Answer Date Recorded Do you have trouble paying for medicines? No 11/03/2023 Paying Utility Bills Answer Date Record ed Do you have trouble paying your heating or elect ricity bill? No 11/03/2023 Transportation Answer Date Recorded Has the lack of transportati on kept you from medical appointments or from getting medications? No 11/03/2023 Unemployment Answer Date Recorded Are you currently unemployed or working on a part-time or temporary basis, and looking for work? No 10/28/2022 Digital Access Answer Date Recorded No 11/03/2023 Yes 11/03/2023 Do you have reliable internet access at home? Ye s 11/03/2023 Do you have a device (e.g., phone, tablet, computer) with a working camera? Yes 11/03/2023 Intimate Partner Violence Answer Date R ecorded Denied Basic Needs Not on file 11/03/2023 In the past 12 months have y ou been in a relationship with a person who hurts, threatens, or tries to control you? No 11/03/2023 Worried food would run out Not on file 11/03 In the past 12 months have y ou been in a relationship with a person who hurts, threatens, or tries to control you? No 11/03/2023 Sex and Gender Information Value Date Recorded Sex Assigned at Male 02/16/2021 10:28 PM EDT Legal Sex Male 10:05 PM EDT Gender Identity Male 02/16/2021 10:28 PM EDT Sexual Orientation Straight 02/16/2021 10 :28 PM EDT documented as of this encounter Plan of Treatment Upcoming Encounters Date Type Department Care Team (Late st Contact Info) Description 08/18/2025 11:45 AM EDT Office Visit [facility] Services [address] [place] [address] Oscar Odell MD [address] [facility] [place] [address] Meme Baldwin, PT 4 [place] [address] 08/20/2025 8:30 AM EDT Office Visit [address] [address] Oscar Odell MD [address] [place] [address] Sports [facility], [place] [address] Meme Baldwin, PT 4 [place] [address] 08/24/2025 10:45 AM EDT Office Visit [address] [address] Oscar Odell MD [address] [place] [address], [place] [address] Meme Baldwin, PT 4 [place] [address] 08/26/2025 9:00 AM EDT Office Visit [address] [address] Oscar Odell MD [address] [place] [address], [place] [address] Della Reeves PTA [address] [place] [address] 2025 10:30 AM EDT Office Visit [address] [address] Oscar Odell MD [address] [place] [address], [place] [address] Della Reeves PTA [address] [place] [address] 09/03/2025 8:30 AM EDT Office Visit [facility] Services [address] [place] [address] Oscar Odell MD [address] [place] [address] [facility] [place] [address] Meme Baldwin, PT 4 [place] [address] 10/18/2025 8:40 AM EST Office Visit [facility] Care [address] [place] [address] [place] [address] Candy Colón MD [address] [place] [address] 11/23/2025 8:40 AM EST Office Visit [facility] Care [address] [facility] [address] [place] [address] Candy Colón MD [address] [place] [address] 11/29/2025 Procedure Pass OR Admitting Dept - Virtual Department [address] [place] [address] 01/11/2026 8:40 AM EST Office Visit [facility] [address] [facility] 3rd Floor, [address] [place] [address] Jorge Alberto Iglesias MD 22 [facility], [address] [place] [address] [email or web address] documented as of this encounter Visit Diagnoses Not on filedocumented in this encounter Additional Health Concerns Assessment Noted Time PHQ-9 Depression Total Score: 1 12/03/19 25 9:57 AM EST PHQ-2 Depression Total Score: 0 11/05/20 24 10:03 AM EST documented as of this encounter Care Teams Talent Rep Relationship Specialty Start Date End Date Candy Colón MD [address] [place] [address] [email or web address] PCP - General Family Medicine 05/01/22 Sahil Quick MD [address] [place] [address] [email or web address] Gastroenterology 10/10/20 Thelma Foster MD [address] [place] [address] Dermatology 10/10/20 Scottie Mena DO [address] [place] [address] [email or web address] Cardiology 10/22/21 Candy Colón MD [address] [place] [address] [email or web address] Insurance Assigned Provider 02/29/24 documented as of this encounter Additional Source Comments The information contained in this document represents components of the legal health record. It is not the complete legal health record.[facility]
--- OUTSIDE RECORDS SUMMARY | 2025-08-12 16:35 | XMS_ITS | Clinical Summary ---
Author Organization [address] [address] Care Team Providers Care Fermenting Cellar Dropper Name Role Phone Sahil Ryan MD Primary [...] Immunization (1 - 1-dose 75+ series) 2023 Influenza vaccine 06/25/2025 Covid-19 vaccine series ( - 2023- season) 2025 Colon cancer screening, Colonoscopy Discontinued Meningococcal B Vaccine Aged Out No l onger eligible based on patient's age to complete this topic Meningococcal Vaccine Aged Out No heike veronica eligible based on patient's age to complete this topic Insurance [facility]ARE [facility] Care Teams Fermenting Cellar Dropper Relationship Specialty Start Date End Date Sahil Ryan MD PCP - General Internal Medicine 03/09/13
--- OUTSIDE RECORDS SUMMARY | 2025-08-12 16:35 | XMS_ITS | Encounter Summary ---
Author Organization [facility] Address [address] [place] [address] [place] [address] Phone Care Team Providers Care Retail Operations Specialist Name Role Phone Sahil Coyle MD Primary Care Provider + [phone] Sahil Coyle MD Unavailable [phone] Sahil Quick MD Unavailable [phone] Thelma Foster MD Unavailable [phone] Scottie Mena DO Unavailable [phone] Candy Colón MD Primary Care Provider [phone] Candy Colón MD Unavailable [phone] Encounter Details Date Type Department Care Team (Late Contact Info) Description 12/04/2021 Procedure Pass [facility] Cardiovascular And Interventional Radiology [address] [place] [address] Social History Tobacco Use Types Packs/Day Years Used Date Smoking Tobacco: Never Smokeless Tobacco: Never Alcohol Use Standard Drinks/Week [...] Upcoming Encounters Date Type Department Care Team ([facility] Contact Info) Description 08/18/2025 11:45 AM EDT Office Visit [address] [address] Oscar Odell MD [address] [place], [place] [address]s Sports [facility], [place] [address] Meme Baldwin, PT 4 [place] [address] 08/20/2025 8:30 AM EDT Office Visit [address] [address] Oscar Odell MD [address] [place], [place] [address]s Sports [facility], [place] [address] Meme Baldwin, PT 4 [place] [address] 08/24/2025 10:45 AM EDT Office Visit [address] [address] Oscar Odell MD [address] [place] [address], [place] [address] Meme Baldwin, PT 4 [place] [address] 08/26/2025 9:00 AM EDT Office Visit [address] [phone] Oscar Odell MD [address] [place] [address] Sports [facility], [place], [place] [phone] Della Reeves MARKETING BUDGET ANALYST [address] [place] [address] 2025 10:30 AM EDT Office Visit [address] [address] Oscar Odell MD [address] [place] [address] [facility], [place] [address] Della Reeves PTA [address] [place] [address] 09/03/2025 8:30 AM EDT Office Visit [address] [address] Oscar Odell MD [address] [place] [address] Orthopedics Sports [facility], [place] [address] Meme Baldwin, PT [address] [place] [address] 10/18/2025 8:40 AM EST Office Visit [facility] Primary Care [address] [place] [address] Candy Colón MD [address] [address] 11/23/2025 8:40 AM EST Office Visit [facility] Care [address] [place] [address] Candy Colón MD 15 [facility] 201 [place] [address] 11/29/2025 Procedure Pass OR Admitting Dept - Virtual Department [address] [place] [address] 01/11/2026 8:40 AM EST Office Visit [facility] [address] 3rd Floor, [address] [place] [address] Jorge Alberto Iglesias MD 22 [facility], [address] [place] [address] [email or web address] documented as of this encounter Visit Diagnoses Not on filedocumented in this encounter Additional Health Concerns Infection Onset Date Last Indicated Resolved Time COVID-19 08/19/2024 08/19/2024 09/09/2024 1:23 AM EDT Assessment Noted Time PHQ-2 Depression Total Score: 0 10/20/20 21 1:48 PM EST documented as of this encounter Care Teams Retail Operations Specialist Relationship Specialty Start Date End Date Sahil Coyle MD [address] [place] [address] [email or web address] PCP - General Internal Medicine 08/26/18 04/30/22 Candy Colón MD 15 [facility] 201 [place] [address] [email or web address] PCP - General Family Medicine 05/01/22 Sahil Coyle MD [address] [place] [address] [email or web address] Insurance Assigned Provider 03/02/20 03/02/23 Sahil Quick MD [address] [place] [address] [email or web address] Gastroenterology 10/10/20 Thelma Foster MD [address] [place] [address] Dermatology 10/10/20 Scottie Mena DO [address], [place] [address] [email or web address] Cardiology 10/22/21 Candy Colón MD 15 [facility]. [address] [place] [address] [email or web address] Insurance Assigned Provider 02/29/24 documented as of this encounter Additional Source Comments The information contained in this document represents components of the legal health record. It is not the complete legal health record.[facility]
--- OUTSIDE RECORDS SUMMARY | 2025-08-12 16:35 | XMS_ITS | Encounter Summary ---
Author Organization [facility] Address [address] [place] [phone] Care Team Providers Care Artillery Or Naval Gunfire Observer Name Role Phone Sahil Ryan MD Primary Care Provider Unavaila ble Encounter Details Date Type Department Care Team (Late st Contact Info) Description 04/09/2016 Scanned Document Dermatologic Surgery [address] [id number] Jos Sewell MD 160 [facility] 104 [place] [id number] Social History Tobacco Use Types Packs/Day Years [...] Jos Sewell MD PATHOLOGY/CYTOLOGY ORDERABLES Final Result [facility] [place], [place], [facility] documented in this encounter Visit Diagnoses Not on filedocumented in this encounter Care Teams Artillery Or Naval Gunfire Observer Relationship Specialty Start Date End Date Sahil Ryan MD PCP - General Internal Medicine 03/09/13 documented as of this encounter
--- OUTSIDE RECORDS SUMMARY | 2025-08-12 16:35 | XMS_ITS | Encounter Summary ---
Author Organization [facility] Address [address] [place] [address] [place] [address] Phone Care Team Providers Care Senior User Experience Architect Name Role Phone Sahil Coyle MD Primary Care Provider + [phone] Sahil Coyle MD Unavailable +[phone] Sahil Quick MD Unavailable [phone] Thelma Foster MD Unavailable [phone] Scottie Mena DO Unavailable [phone] Candy Colón MD Primary Care Provider [phone] Candy Colón MD Unavailable [phone] Encounter Details Date Type Department Care Team (Late Contact Info) Description 11/29/2021 Procedure Pass [facility] Cardiovascular And Interventional Radiology [address] [place] [address] Social History Tobacco Use Types Packs/Day Years [...] Upcoming Encounters Date Type Department Care Team ([facility] Contact Info) Description 08/18/2025 11:45 AM EDT Office Visit [address] [address] Oscar Odell MD [address] [place], [place] [address]s Sports [facility], [place] [address] Meme Baldwin, PT 4 [place] [address] 08/20/2025 8:30 AM EDT Office Visit [address] [address] Oscar Odell MD [address] [place], [place] [address]s Sports [facility], [place] [address] Meme Baldwin, PT 4 [place] [address] 08/24/2025 10:45 AM EDT Office Visit [address] [address] Oscar Odlel MD [address] [place] [address], [place] [address] Meme Baldwin, PT 4 [place] [address] 08/26/2025 9:00 AM EDT Office Visit [address] [id number] Oscar Odell MD [address] [place] [address] Sports [facility], [place], [place] [id number] Della Reeves MANAGER PROGRAM MANAGEMENT [address] [place] [address] 2025 10:30 AM EDT Office Visit [address] [address] Oscar Odell MD [address] [place] [address] [facility], [place] [address] Della Reeves PTA [address] [place] [address] 09/03/2025 8:30 AM EDT Office Visit [address] [address] Oscar Odell MD [address] [place] [address] Orthopedics Sports [facility], [place] [address] Meme Baldwin, PT [address] [place] [address] 10/18/2025 8:40 AM EST Office Visit [facility] [address] [place] [address] Candy Cloón MD [address] [address] 11/23/2025 8:40 AM EST Office Visit [facility] [address] [place] [address] Candy Colón MD 15 [facility] 201 [place] [address] 11/29/2025 Procedure Pass OR Admitting Dept - Virtual Department [address] [place] [address] 01/11/2026 8:40 AM EST Office Visit [facility] [address] Floor, [address] [place] [address] Jorge Alberto Iglesias MD 22 [facility], [address] [place] [address] [email or web address] documented as of this encounter Visit Diagnoses Not on filedocumented in this encounter Additional Health Concerns Infection Onset Date Last Indicated Resolved Time COVID-19 08/19/2024 08/19/2024 09/09/2024 1:23 AM EDT Assessment Noted Time PHQ-2 Depression Total Score: 0 10/20/20 21 1:48 PM EST documented as of this encounter Care Teams Senior User Experience Architect Relationship Specialty Start Date End Date Sahil Coyle MD [address] [place] [address] [email or web address] PCP - General Internal Medicine 08/26/18 04/30/22 Candy Colón MD 15 [facility] 201 [place] [address] [email or web address] PCP - General Family Medicine 05/01/22 Sahil Coyle MD [address] [place] [address] [email or web address] Insurance Assigned Provider 03/02/20 03/02/23 Sahil Quick MD [address] [place] [address] [email or web address] Gastroenterology 10/10/20 Thelma Foster MD [address] [place] [address] Dermatology 10/10/20 Scottie Mena DO [place], [place] [address] [email or web address] Cardiology 10/22/21 Candy Colón MD 15 [facility]. 201 [place] [address] [email or web address] Insurance Assigned Provider 02/29/24 documented as of this encounter Additional Source Comments The information contained in this document represents components of the legal health record. It is not the complete legal health record.[facility]
--- OUTSIDE RECORDS SUMMARY | 2025-08-12 16:35 | XMS_ITS | Encounter Summary ---
Author Organization [facility] Address [address] [facility] [address] [place] [address] Phone Care Team Providers Care Stone Crusher Operator Name Role Phone Sahil Quick MD Unavailable [phone] Thelma Foster MD Unavailable [phone] Scottie Mena DO Unavailable [phone] Candy Colón MD Primary Care Provider [phone] Candy Colón MD Unavailable [phone] Reason for Referral * Physical Therapy (Elective) - New Request Specialty Diagnoses / Procedures Referred By Jan jason Referred To Contact Physical Therapy Diagnoses Encounter for rehabilitation Alfredo Millard MD [address] [address] Phone: tel: fax: [address] [address] Phone: tel: Referral ID Status Reason Start Date Expiration Date V isits Requested Visits Authorized [id number] New Request 08/10/2025 08/10/2026 1 1 Encounter Details Date Type Department Care Team (Latest Contact Info) Description 08/10/2025 Transcribe Orders [facility] [address] [place] [address] Alfredo Millard MD [address], [address] [place] [address] Encounter for rehabilitation (Primary Dx) Social History Tobacco Use Types [...] Description 08/18/2025 11:45 AM EDT Office Visit [address] [address] Oscar Odell MD [address] [place] [address] [facility] [place] [address] Meme Baldwin, PT 4 [place] [address] 08/20/2025 8:30 AM EDT Office Visit [address] [address] Oscar Odell MD [address] [place] [address] [facility] [address] Meme Baldwin, PT 4 [place], [place] 08/24/2025 10:45 AM EDT Office Visit [address] [phone] Oscar Odell MD [address] [place] [address] Orthopedics Sports [facility], [place], [place] [address] Meme Baldwin, PT 4 [place] [address] 08/26/2025 9:00 AM EDT Office Visit [address] [id number] Oscar Odell MD [address] [place] [address] Orthopedics Sports [facility], [place], [place] [address]24[address] Della Reeves PTA [address] [place] [address] 2025 10:30 AM EDT Office Visit [address] [phone] Oscar Odell MD [address] [place] [address] Sports [facility], [place], [place] 8989[address] Della Reeves PTA [address] [place] [address] 09/03/2025 8:30 AM EDT Office Visit [address] [id number] Oscar Odell MD [address] [place] [address] Sports [facility], [place], [place] [address] Meme Baldwin, PT 4 [place], [place] 3934[address] 10/18/2025 8:40 AM EST Office Visit [facility] [place] [facility] [address] [place], [place] [phone] Candy Colón MD 15 [facility]. 201 [place] [address] 11/23/2025 8:40 AM EST Office Visit [facility] [place] [facility] [address] [facility] [address] [place] [address] Candy Colón MD 15 [facility] 201 [place] [address] 11/29/2025 Procedure Pass OR Admitting Dept - Virtual Department 30 [place] [address] 01/11/2026 8:40 AM EST Office Visit [facility] 22 [facility] 3rd Floor, [address] [place] [address] Jorge Alberto Iglesias MD 22 [facility], [address] [place] [address] Scheduled Referrals Name Type Priority Associated Diagnoses Orde r Schedule Ambulatory referral to [facility] Physical Therapy Outpatient Referral Routine Encounter for rehabilitation Ordered: 08/10/2025 documented as of this encounter Visit Diagnoses Diagnosis Encounter for rehabilitation- Primary documented in this encounter Additional Health Concerns Assessment Noted Time PHQ-9 Depression Total Score: 1 12/03/19 25 9:57 AM EST PHQ-2 Depression Total Score: 0 11/05/20 24 10:03 AM EST documented as of this encounter Care Teams Stone Crusher Operator Relationship Specialty Start Date End Date Candy Colón MD 15 [facility] 201 [place] [address] PCP - General Family Medicine 05/01/22 Sahil Quick MD [address] [place] [address] Gastroenterology 10/10/20 Thelma Foster MD [address] [place] [address] Dermatology 10/10/20 Scottie Mena DO [address] [place] [address] Cardiology 10/22/21 Candy Colón MD [address] [address] [email or web address] Insurance Assigned Provider 02/29/24 documented as of this encounter Additional Source Comments The information contained in this document represents components of the legal health record. It is not the complete legal health record.[facility]
--- OUTSIDE RECORDS SUMMARY | 2025-08-12 16:35 | XMS_ITS | Encounter Summary ---
Author Organization [facility] Address [address] [place] [address] [place] [address] Phone Care Team Providers Care Distributor Advertising Material Name Role Phone Sahil Coyle MD Primary Care Provider + [phone] Sahil Coyle MD Unavailable [phone] Sahil Quick MD Unavailable [phone] Thelma Foster MD Unavailable [phone] Scottie Mena DO Unavailable [phone] Candy Colón MD Primary Care Provider [phone] Candy Colón MD Unavailable [phone] Encounter Details Date Type Department Care Team (Late st Contact Info) Description 11/27/2021 Procedure Pass [facility] [address] [place] [address] Social History Tobacco Use Types Packs/Day Years [...] Description 08/18/2025 11:45 AM EDT Office Visit [address] [id number] Oscar Odell MD [address] [place] [address] Orthopedics Sports [facility], [place] [address] Meme Baldwin, PT 4 [place] [address] 08/20/2025 8:30 AM EDT Office Visit [address] [address] Oscar Odell MD [address] [place], [place] [address]s Sports [facility], [place] [address] Meme Baldwin, PT 4 [place] [address] 08/24/2025 10:45 AM EDT Office Visit [address] [phone] Oscar Odell MD [address] [place] [address], [place], [place] 200[address] Meme Baldwin, PT 4 [place] [address] 08/26/2025 9:00 AM EDT Office Visit [address] 1689188 Oscar Odell MD [address] [place] [address], [place], [place] [address] Della Reeves DIRECTOR FEDERAL 4 [place] [address] 2025 10:30 AM EDT Office Visit [address] [address] Oscar Odell MD 4 [facility], [place] [address] Della Reeves PTA [address] [place] [address] 09/03/2025 8:30 AM EDT Office Visit [address] [address] Oscar Odell MD [address] [place] [address] Orthopedics Sports [facility], [place] [address] Meme Baldwin, PT [address] [place] [address] 10/18/2025 8:40 AM EST Office Visit [facility] [address] [facility] [address] [place] [address] Candy Colón MD 15 [facility] 201 [place] [address] 11/23/2025 8:40 AM EST Office Visit [facility] [address] [facility] [address] [place] [address] Candy Colón MD 15 [facility]. 201 [place] [address] 11/29/2025 Procedure Pass OR Admitting Dept - Virtual Department 30 [place] [address] 01/11/2026 8:40 AM EST Office Visit [facility] [address] 3rd Floor, [address] [place] [address] Jorge Alberto Iglesias MD 22 [facility], [address] [place] [address] [email or web address] documented as of this encounter Visit Diagnoses Not on filedocumented in this encounter Additional Health Concerns Infection Onset Date Last Indicated Resolved Time COVID-19 08/19/2024 08/19/2024 09/09/2024 1:23 AM EDT Assessment Noted Time PHQ-2 Depression Total Score: 0 10/20/20 21 1:48 PM EST documented as of this encounter Care Teams Distributor Advertising Material Relationship Specialty Start Date End Date Sahil Coyle MD [address] [place] [address] [email or web address] PCP - General Internal Medicine 08/26/18 04/30/22 Candy Colón MD 15 [facility] 201 [place] [address] [email or web address] PCP - General Family Medicine 05/01/22 Sahil Coyle MD [address] [place] [address] [email or web address] Insurance Assigned Provider 03/02/20 03/02/23 Sahil Quick MD [address] [place] [address] [email or web address] Gastroenterology 10/10/20 Thelma Foster MD [address], [place] [address] Dermatology 10/10/20 Scottie Mena DO [address], [place] [address] [email or web address] Cardiology 10/22/21 Candy Colón MD [address] [place] [address] [email or web address] Insurance Assigned Provider 02/29/24 documented as of this encounter Additional Source Comments The information contained in this document represents components of the legal health record. It is not the complete legal health record.[facility]
--- OUTSIDE RECORDS SUMMARY | 2025-08-12 16:35 | XMS_ITS | Encounter Summary ---
Author Organization [facility] Address [address] [place] [address] [place] [address] Phone Care Team Providers Care District Resource Officer Name Role Phone Sahil Coyle MD Primary Care Provider + [phone] Sahil Coyle MD Unavailable [phone] Sahil Quick MD Unavailable [phone] Thelma Foster MD Unavailable [phone] Sctotie Mena DO Unavailable [phone] Candy Colón MD Primary Care Provider [phone] Candy Colón MD Unavailable [phone] Encounter Details Date Type Department Care Team (Late st Contact Info) Description 07/21/2021 Procedure Pass [facility] [address] [place] [address] Social History Tobacco Use Types Packs/Day Years [...] Description 08/18/2025 11:45 AM EDT Office Visit [address] [id number] Oscar Odell MD [address] [place] [address] Orthopedics Sports [facility], [place] [address] Meme Baldwin, PT 4 [place] [address] 08/20/2025 8:30 AM EDT Office Visit [address] [address] Oscar Odell MD [address] [place], [place] [address]s Sports [facility], [place] [address] Meme Baldwin, PT 4 [place] [address] 08/24/2025 10:45 AM EDT Office Visit [address] [id number] Oscar Odell MD [address] [place] [address], [place], [place] 2316[address] Meme Baldwin, PT 4 [place] [address] 08/26/2025 9:00 AM EDT Office Visit [address] [id number] Oscar Odell MD [address] [place] [address], [place], [place] [phone] Della Reeves LEVER OPERATOR 4 [place] [address] 2025 10:30 AM EDT Office Visit [address] [address] Oscar Odell MD 4 [facility], [place] [address] Della Reeves PTA [address] [place] [address] 09/03/2025 8:30 AM EDT Office Visit [address] [address] Oscar Odell MD [address] [place] [address] Orthopedics Sports [facility], [place] [address] Meme Baldwin, PT [address] [place] [address] 10/18/2025 8:40 AM EST Office Visit [facility] [address] [facility] [address] [place] [address] Candy Colón MD 15 [facility] 201 [place] [address] 11/23/2025 8:40 AM EST Office Visit [facility] [address] [facility] [address] [place] [address] Candy Colón MD 15 [facility]. 201 [place] [address] 11/29/2025 Procedure Pass OR Admitting Dept - Virtual Department 30 [place] [address] 01/11/2026 8:40 AM EST Office Visit [facility] [address] Floor, [address] [place] [address] Jorge Alberto Iglesias MD 22 [facility], [address] [place] [address] [email or web address] documented as of this encounter Visit Diagnoses Not on filedocumented in this encounter Additional Health Concerns Infection Onset Date Last Indicated Resolved Time COVID-19 08/19/2024 08/19/2024 09/09/2024 1:23 AM EDT Assessment Noted Time PHQ-2 Depression Total Score: 0 10/06/20 19 1:30 PM EST documented as of this encounter Care Teams District Resource Officer Relationship Specialty Start Date End Date Sahil Coyle MD [address] [place] [address] [email or web address] PCP - General Internal Medicine 08/26/18 04/30/22 Candy Colón MD 15 [facility] 201 [place] [address] [email or web address] PCP - General Family Medicine 05/01/22 Sahil Coyle MD [address] [place] [address] [email or web address] Insurance Assigned Provider 03/02/20 03/02/23 Sahil Quick MD [address] [place] [address] [email or web address] Gastroenterology 10/10/20 Thelma Foster MD [address] [address] Dermatology 10/10/20 Scottie Mena DO [address], [place] [address] [email or web address] Cardiology 10/22/21 Candy Colón MD [address] [place] [address] [email or web address] Insurance Assigned Provider 02/29/24 documented as of this encounter Additional Source Comments The information contained in this document represents components of the legal health record. It is not the complete legal health record.[facility]
--- OUTSIDE RECORDS SUMMARY | 2025-08-12 16:35 | XMS_ITS | Encounter Summary ---
Author Organization [facility] Address [address] [facility] [address] [place] [address] Phone Care Team Providers Care Inventory Technician Name Role Phone Sahil Coyle MD Primary Care Provider + [phone] Sahil Coyle MD Unavailable [phone] Sahil Quick MD Unavailable [phone] Thelma Foster MD Unavailable [phone] Scottie Mena DO Unavailable [phone] Candy Colón MD Primary Care Provider [phone] Candy Colón MD Unavailable [phone] Encounter Details Date Type Department Care Team (Latest Contact Info) Description 11/03/2019 Transcribe Orders Virtual Department 30 [place] [address] Sahil Quick MD [address] [place] [address] [email or web address] Hemochromatosis, hereditary (Primary Dx) Social History Tobacco Use Types [...] Description 08/18/2025 11:45 AM EDT Office Visit [address] [address] Oscar Odell MD [address] [place], [place] [address]s Sports [facility], [place] [address] Meme Baldwin, PT 4 [place] [address] 08/20/2025 8:30 AM EDT Office Visit [address] [address] Oscar Odell MD [address] [place] [address], [place] [address] Meme Baldwin, PT 4 [place] [address] 08/24/2025 10:45 AM EDT Office Visit [address] [address] Oscar Odell MD [address] [place] [address], [place], [place] [id number] Meme Baldwin, PT 4 [place] [address] 08/26/2025 9:00 AM EDT Office Visit [address] [id number] Oscar Odell MD [address] [place] [address], [place], [place] 1894[address] Della Reeves, DIRECTOR [employer]ES [address] [place] [address] 2025 10:30 AM EDT Office Visit [address] [address] Oscar Odell MD [address] [place] [address] Orthopedics Sports [facility], [place] [address] Della Reeves DIRECTOR [employer] [address] [place] [address] 09/03/2025 8:30 AM EDT Office Visit [address] [address] Oscar Odell MD [address] [place] [address] Orthopedics Sports [facility], [place] [address] Meme Baldwin, PT [address] [place] [address] 10/18/2025 8:40 AM EST Office Visit [facility] [address] [place] [address] [place] [address] Candy Colón MD [address] [place] [address] 11/23/2025 8:40 AM EST Office Visit [facility] [address] [place] [address] Candy Colón MD [address] [place] [address] 11/29/2025 Procedure Pass OR Admitting Dept - Virtual Department [address] [place] [address] 01/11/2026 8:40 AM EST Office Visit [facility] [address] [facility] 3rd Floor, [address] [place] [address] Jorge Alberto Iglesias MD [address] [facility], [address] [place] [address] [email or web address] documented as of this encounter Results * US ABDOMEN LIMITED RIGHT UPPER QUADRANT (11/10/2019 7:57 AM EST) Anatomical Region Laterality Modality Abdomen Ultrasound 11/10/2019 10:4 1 AM EST Impressions 11/10/2019 10:46 AM EST 1. No gallstones or biliary ductal dilatation. 2. No liver masses identified. POS - [id number] Narrative 11/10/2019 10:46 AM EST EXAM: US ABDOMEN LIMITED RIGHT UPPER QUADRANT HISTORY: HEMOCHROMATOSIS TECHNIQUE: Limited abdominal ultrasound was performed of the right upper quadrant with grayscale and color Doppler imaging. COMPARISON: None. FINDINGS: Limited visualization of portions of the liver secondary to bowel gas. Liver: Echogenicity and echotexture appear within normal limits. No liver masses or perihepatic fluid. Gallbladder: No shadowing gallstones. No gallbladder wall thickening or pericholecystic fluid. Negative sonographic Ling sign. Biliary tree: No intrahepatic or extrahepatic biliary ductal dilatation. The common duct at the gloria hepatis measures 5 mm, normal. Pancreas: The head and body of the pancreas appear normal. Unable to visualize the pancreatic tail which is obscured by overlying bowel gas. Right kidney: Survey imaging shows no hydronephrosis. Free fluid: None in the right upper quadrant. Procedure Note Vaishnavi Mak MD - 11/10/2019 EXAM: US ABDOMEN LIMITED RIGHT UPPER QUADRANT HISTORY: HEMOCHROMATOSIS TECHNIQUE: Limited abdominal ultrasound was performed of the right upperquadrant with grayscale and color Doppler imaging. COMPARISON: None. FINDINGS: Limited visualization of portions of the liver secondary to bowel gas. Liver: Echogenicity and echotexture appear within normal limits. No livermasses or perihepatic fluid. Gallbladder: No shadowing gallstones. No gallbladder wall thickening orpericholecystic fluid. Negative sonographic Ling sign. Biliary tree: No intrahepatic or extrahepatic biliary ductal dilatation.The common duct at the gloria hepatis measures 5 mm, normal. Pancreas: The head and body of the pancreas appear normal. Unable tovisualize the pancreatic tail which is obscured by overlying bowel gas. Right kidney: Survey imaging shows no hydronephrosis. Free fluid: None in the right upper quadrant. IMPRESSION: 1. No gallstones or biliary ductal dilatation. 2. No liver masses identified. POS - [id number] Sahil Quick MD IMG US ABDOMEN Final Result documented in this encounter Visit Diagnoses Diagnosis Hemochromatosis, hereditary- Primary Hemochromatosis, hereditary documented in this encounter Additional Health Concerns Infection Onset Date Last Indicated Resolved Time COVID-19 08/19/2024 08/19/2024 09/09/2024 1:23 AM EDT Assessment Noted Time PHQ-2 Depression Total Score: 0 10/06/20 19 1:30 PM EST documented as of this encounter Care Teams Inventory Technician Relationship Specialty Start Date End Date Sahil Coyle MD [address] [address] [email or web address] PCP - General Internal Medicine 08/26/18 04/30/22 Candy Colón MD [address] [place] [address] [email or web address] PCP - General Family Medicine 05/01/22 Sahil Coyle MD [address] [address] Insurance Assigned Provider 03/02/20 03/02/23 Shail Quick MD [address] [address] [email or web address] Gastroenterology 10/10/20 Thelma Foster MD [address] [address] Dermatology 10/10/20 Scottie Mena DO [address], [place] [address] [email or web address] Cardiology 10/22/21 Candy Colón MD [address] [facility] [address] [place] [address] [email or web address] Insurance Assigned Provider 02/29/24 documented as of this encounter Additional Source Comments The information contained in this document represents components of the legal health record. It is not the complete legal health record.[facility]
--- OUTSIDE RECORDS SUMMARY | 2025-08-12 16:35 | XMS_ITS | Encounter Summary ---
Author Organization [facility] Address [address] [place] [address] Phone Care Team Providers Care Statistical Analyst Name Role Phone Sahil Quick MD Unavailable [phone] Thelma Foster MD Unavailable [phone] Scottie Mena DO Unavailable [phone] Candy Colón MD Primary Care Provider [phone] Candy Colón MD Unavailable [phone] Encounter Details Date Type Department Care Team (Late st Contact Info) Description 12/07/2024 Ancillary Orders [address] [id number] Nichelle Brown MD [address] [place] [address] Orth[facility]ics [facility] Medicine, [place], [place] [phone] [email or web address] Left hip pain (Primary Dx) Social History Tobacco Use Types [...] ecorded Denied Basic Needs Not on file 11/05/2024 In the past 12 months have y ou been in a relationship with a person who hurts, threatens, or tries to control you? No 11/05/2024 Worried food would run out Not on file 11/05 In the past 12 months have y ou been in a relationship with a person who hurts, threatens, or tries to control you? No 11/05/2024 Sex and Gender Information Value Date Recorded Sex Assigned at Male 02/16/2021 10:28 PM EDT Legal Sex Male 10:05 PM EDT Gender Identity Male 02/16/2021 10:28 PM EDT Sexual Orientation Straight 02/16/2021 10 :28 PM EDT documented as of this encounter Plan of Treatment Upcoming Encounters Date Type Department Care Team (Late st Contact Info) Description 08/18/2025 11:45 AM EDT Office Visit [address] [phone] Oscar Odell MD [address] [place] [address], [place] [address] Meme Baldwin, PT 4 [place] [address] 08/20/2025 8:30 AM EDT Office Visit [address] [phone] Oscar Odell MD [address] [place] [address], [place], [place] [phone] Meme Baldwin, PT 4 [place], [place] [id number] 08/24/2025 10:45 AM EDT Office Visit [address] [id number] Oscar Odell MD [address] [place] [address], [place], [place] [phone] Meme Baldwin, PT 4 [place], [place] [phone] 08/26/2025 9:00 AM EDT Office Visit [address] [id number] Oscar Odell MD [address] [place] [address], [place], [place] [phone] Della Reeves, PUBLIC RECORDS OFFICER [address] [place] [address] 2025 10:30 AM EDT Office Visit [address] [address] Oscar Odell MD [address] [place] [address] Sports [facility], [place] [address] Della Reeves, PUBLIC RECORDS OFFICER [address] [place] [address] 09/03/2025 8:30 AM EDT Office Visit [address] [address] Oscar Odell MD [address] [place] [address], [place] [address] Meme Baldwin, PT 4 [place] [address] 10/18/2025 8:40 AM EST Office Visit [facility] [address] [facility] [address] [place] [address] Candy Colón MD [address] [place] [address] 11/23/2025 8:40 AM EST Office Visit [facility] [address] [facility] [address] [place] [address] Candy Colón MD [address] [place] [address] 11/29/2025 Procedure Pass OR Admitting Dept - Virtual Department [address] [place] [address] 01/11/2026 8:40 AM EST Office Visit [facility] [address] [facility] 3rd Floor, [address] [place] [address] Jorge Alberto Iglesias MD 22 [facility], [address] [address] [email or web address] Pending Results Name Type Priority Associated Diagnoses Date /Time FL Guidance Needle Placement Non-Spine Imaging Routine Left hip pain 12/15/2024 8:10 AM EST Scheduled Orders Name Type Priority Associated Diagnoses Orde r Schedule FL Guidance Needle Placement Non-Spine Imaging Routine Left hip pain 1 Occurrences starting 12/07/2024 until 03/07/2025 documented as of this encounter Visit Diagnoses Diagnosis Left hip pain- Primary Pain in joint, pelvic region and thigh documented in this encounter Additional Health Concerns Assessment Noted Time PHQ-9 Depression Total Score: 1 12/03/19 25 9:57 AM EST PHQ-2 Depression Total Score: 0 11/05/20 24 10:03 AM EST documented as of this encounter Care Teams Statistical Analyst Relationship Specialty Start Date End Date Candy Colón MD [address] [address] PCP - General Family Medicine 05/01/22 Sahil Quick MD [address] [place] [address] Gastroenterology 10/10/20 Thelma Foster MD [address] [place] [address] Dermatology 10/10/20 Scottie Mena DO [address] [place] [address] Cardiology 10/22/21 Candy Colón MD [address] [address] [email or web address] Insurance Assigned Provider 02/29/24 documented as of this encounter Additional Source Comments The information contained in this document represents components of the legal health record. It is not the complete legal health record.[facility]
--- OUTSIDE RECORDS SUMMARY | 2025-08-12 16:35 | XMS_ITS | Clinical Summary ---
Author Organization [facility] Address [address] [place] [address] Care Team Providers Care Design Engineer Marine Equipment Name Role Phone Unavailable Primary Care Provider Unavailabl e Social History Tobacco Use Types Packs/Day Years Used Date Smoking Tobacco: Never Assessed Sex and Gender Information Value Date Recorded Sex Assigned at Not on file Legal Sex Male 8:50 AM EDT Gender Identity Not on file Sexual Orientation Not on file Plan of Treatment Health Maintenance Due Date Last Done Comments Advance Care Planning 1950 Hepatitis C Virus Screening 1950 DTaP/Tdap/Td Vaccines (1 - Tdap) 1967 Pneumococcal Vaccines 50+ (1 of 1 - PCV) 1998 Zoster (Shingles) Vaccine (1 of 2) 1998 RSV Vaccine 60 years and older and Patients (1 - 1-dose 75+ series) 2023 COVID-19 Vaccine (3 - season) 2025 02/22/2021, 01/25/2021 Influenza Vaccine Discontinued 09/08/2023, , 10/20/2021, Additional history exists Hepatitis B Vaccines Aged Out No long er eligible based on patient's age to complete this topic
--- OUTSIDE RECORDS SUMMARY | 2025-08-12 16:35 | XMS_ITS | Encounter Summary ---
Author Organization [facility] Address [address] [place] [address] Phone Care Team Providers Care Cnc Machinist Name Role Phone Sahil Quick MD Unavailable [phone] Thelma Foster MD Unavailable [phone] Scottie Mena DO Unavailable [phone] Candy Colón MD Primary Care Provider [phone] Candy Colón MD Unavailable [phone] Encounter Details Date Type Department Care Team (Late st Contact Info) Description 11/12/2023 Procedure Pass [facility] [address] [place] [id number] Social History Tobacco Use Types Packs/Day Years Used Date Smoking Tobacco: Never Smokeless Tobacco: Never Alcohol Use Standard Drinks/Week Comments Yes 0 (1 standard drink = 0.6 oz pure alcohol) 5-10 oz wine most nights and a couple of beers per week Child or Family Care Answer Date Record ed Do you have problems with on e of the following making it difficult for you to work, study, or receive health care? No 11/03/2023 Education Answer Date Recorded Are you interested in help w ith more adult education (for example, completing high school, GED, job training, learning the Upper Sor[place] language, technical skills, or developing parenting skills)? [...] Description 08/18/2025 11:45 AM EDT Office Visit [facility] [address] [place] [address] Oscar Odell MD [address] [facility], [place] [address] Meme Baldwin, PT 4 [place] [address] 08/20/2025 8:30 AM EDT Office Visit [address] [address] Oscar Odell MD [address] [place], [place] [address]s Sports [facility], [place] [address] Meme Baldwin, PT 4 [place] [address] 08/24/2025 10:45 AM EDT Office Visit [address] [address] Oscar Odlel MD [address] [place] [address] Sports [facility], [place] [address] Meme Baldwin, PT 4 [place] [address] 08/26/2025 9:00 AM EDT Office Visit [address] [address] Oscar Odell MD [address] [place] [address] Sports [facility], [place] [address] Della Reeves PTA [address] [place] [address] 2025 10:30 AM EDT Office Visit [address] [address] Oscar Odell MD [address] [facility] [place] [address] Della Reeves PTA 4 [place] [address] 09/03/2025 8:30 AM EDT Office Visit [facility] [address] [place] [address] Oscar Odell MD [address] [place] [address] [facility] [place] [address] Meme Baldwin, PT 4 [place] [address] 10/18/2025 8:40 AM EST Office Visit [facility] [address] [facility] [address] [place] [address] Candy Colón MD 15 [facility]. [address] [place] [address] 11/23/2025 8:40 AM EST Office Visit [facility] [address] [facility] [address] [place] [address] Candy Colón MD [address] [place] [address] [place]. [address] [place] [address] 11/29/2025 Procedure Pass [place] Admitting Dept - Virtual Department [address] [place] [address] 01/11/2026 8:40 AM EST Office Visit [facility] [address] [facility] 3rd Floor, [address] [place] [address] Jorge Alberto Iglesias MD 22 [facility], [address] [place] [address] documented as of this encounter Visit Diagnoses Not on filedocumented in this encounter Additional Health Concerns Infection Onset Date Last Indicated Resolved Time COVID-19 08/19/2024 08/19/2024 09/09/2024 1:23 AM EDT Assessment Noted Time PHQ-2 Depression Total Score: 0 11/03/20 1:09 PM EST documented as of this encounter Care Teams Cnc Machinist Relationship Specialty Start Date End Date Candy Colón MD [address] [place] [address] PCP - General Family Medicine 05/01/22 Sahil Quick MD [address] [place] [address] Gastroenterology 10/10/20 Thelma Foster MD [address], [place] [address] Dermatology 10/10/20 Scottie Mena DO [address] [place] [address] Cardiology 10/22/21 Candy Colón MD [address] [place] [address] Insurance Assigned Provider 02/29/24 documented as of this encounter Additional Source Comments The information contained in this document represents components of the legal health record. It is not the complete legal health record.[facility]
--- OUTSIDE RECORDS SUMMARY | 2025-08-12 16:35 | XMS_ITS | Encounter Summary ---
Author Organization [facility] Address [address] [facility] [address] [place] [address] Phone Care Team Providers Care Sock Examiner Name Role Phone Sahil Coyle MD Primary Care Provider + [phone] Sahil Coyle MD Unavailable [phone] Sahil Quick MD Unavailable [phone] Thelma Foster MD Unavailable [phone] Scottie Mena DO Unavailable [phone] Candy Colón MD Primary Care Provider [phone] Candy Colón MD Unavailable [phone] Encounter Details Date Type Department Care Team (Latest Contact Info) Description 05/02/2021 Transcribe Orders Virtual Department 30 [place] [address] Sahil Quick MD [address] [place] [address] [email or web address] Hemochromatosis, hereditary (Primary Dx); Eosinophilic esophagitis Social History Tobacco Use Types Packs/Day Years [...] Description 08/18/2025 11:45 AM EDT Office Visit [address] [address] Oscar Odell MD [address] [place], [place] [address]s Sports [facility] [place] [address] Meme Baldwin, PT 4 [place] [address] 08/20/2025 8:30 AM EDT Office Visit [address] [address] Oscar Odell MD [address] [place] [address] Sports [facility] [place] [address] Meme Baldwin, PT 4 [place] [address] 08/24/2025 10:45 AM EDT Office Visit [address] [address] Oscar Odell MD [address] [place] [address], [place], [place] [phone] Meme Baldwin, PT 4 [place], [place] [id number] 08/26/2025 9:00 AM EDT Office Visit [address] [phone] Oscar Odell MD [address] [place] [address], [place], [place] [phone] Della Reeves, CASING MAN [address] [place] [address] 2025 10:30 AM EDT Office Visit [address] [address] Oscar Odell MD [address] [place] [address] Orthopedics Sports [facility] [place] [address] Lala, Della, CASING MAN [address] [place] [address] 09/03/2025 8:30 AM EDT Office Visit [address] [address] Oscar Odell MD [address] [place] [address] Orthopedics Sports [facility] [place] [address] Meme Baldwin, PT 4 [place] [address] 10/18/2025 8:40 AM EST Office Visit [facility] [address] [facility] [address] [place] [address] Candy Colón MD [address] [place] [address] 11/23/2025 8:40 AM EST Office Visit [facility] 15 [facility] [address] [place] [address] Candy Colón MD [address] [place] [address] 11/29/2025 Procedure Pass [place] Admitting Dept - Virtual Department [address] [place] [address] [place] [address] 01/11/2026 8:40 AM EST Office Visit [facility] 22 [facility] 3rd Floor, [address] [place] [address] Jorge Alberto Iglesias MD 22 [facility], [address] [place] [address] [email or web address] documented as of this encounter Results * US LIVER WITH ELASTOGRAPHY (05/16/2021 10:31 AM EDT) Anatomical Region Laterality Modality Abdomen Ultrasound 05/16/2021 10:3 5 AM EDT Impressions 05/16/2021 10:36 AM EDT The median shear wave speed is 1.55 m/s. In the absence of other known clinical signs, rules out compensated advanced chronic liver disease. If there are known clinical signs, may need further testing for confirmation. MEDIAN SHEAR WAVE SPEED: 1.3 m/s: High probability of being normal < 1.7 m/s: In the absence of other known clinical signs, rules out compensated advanced chronic liver disease. If there are known clinical signs, may need further testing for confirmation 1.7-2.1 m/s: Suggestive of compensated advanced chronic liver disease, but need further test for confirmation >2.1 m/s: Rules in compensated advanced chronic liver disease >2.4 m/s: Suggestive of compensated advanced chronic liver disease [employer] OF [employer]IOLOGISTS IN ULTRASOUND CONSENSUS: In the setting of elevated liver function tests, nonfasting, vascular congestion, etc., the stage of liver fibrosis may be overestimated. In some patients with NAFLD, the cut-off values for compensated advanced chronic liver disease may be lower. In causes other than viral hepatitis and NAFLD, the cut-off values are not well established. Narrative 05/16/2021 10:36 AM EDT TECHNIQUE: Focused ultrasound evaluation of the liver. Volumetric sweeps were obtained and reviewed. COMPARISON: Limited abdomen ultrasound 11/10/2019. LIVER ELASTOGRAPHY ULTRASOUND FINDINGS: LIVER: No focal lesions.. Patent portal vein is patent with normal direction of flow. ELASTOGRAPHY: Liver stiffness measurements were obtained in the right hepatic lobe on a [employer] ultrasound machine. Point shear wave elastography technique was utilized following SRU guidelines. Measurements obtained are reported for technical adequacy. 10 valid measurements were obtained. Median shear wave speed: 1.55 m/s (7.2 kPa). IQR to median ratio: 2.43%. BILIARY: Gallbladder: Normal. Common bile duct measures 2 mm. Pancreas: Imaged pancreas is normal. Right Kidney: No hydronephrosis. Prox Aorta/IVC: Unremarkable. Procedure Note Guillermo Resendiz MD - 05/16/2021 TECHNIQUE: Focused ultrasound evaluation of the liver. Volumetric sweeps wereobtained and reviewed. COMPARISON: Limited abdomen ultrasound 11/10/2019. LIVER ELASTOGRAPHY ULTRASOUND FINDINGS: LIVER: No focal lesions.. Patent portal vein is patent with normaldirection of flow. ELASTOGRAPHY: Liver stiffness measurements were obtained in the righthepatic lobe on a [employer] ultrasound machine. Point shear waveelastography technique was utilized following SRU guidelines. Measurementsobtained are reported for technical adequacy. 10 valid measurements wereobtained. Median shear wave speed: 1.55 m/s (7.2 kPa). IQR to medianratio: 2.43%. BILIARY: Gallbladder: Normal. Common bile duct measures 2 mm. Pancreas: Imaged pancreas is normal. Right Kidney: No hydronephrosis. Prox Aorta/IVC: Unremarkable. IMPRESSION: The median shear wave speed is 1.55 m/s. In the absence of other knownclinical signs, rules out compensated advanced chronic liver disease. Ifthere are known clinical signs, may need further testing forconfirmation. MEDIAN SHEAR WAVE SPEED: 1.3 m/s: High probability of being normal < 1.7 m/s: In the absence of other known clinical signs, rules outcompensated advanced chronic liver disease. If there are known clinicalsigns, may need further testing for confirmation 1.7-2.1 m/s: Suggestive of compensated advanced chronic liver disease,but need further test for confirmation >2.1 m/s: Rules in compensated advanced chronic liver disease >2.4 m/s: Suggestive of compensated advanced chronic liver disease SOCIETY OF RADIOLOGISTS IN ULTRASOUND CONSENSUS: In the setting of elevated liver function tests, nonfasting, vascularcongestion, etc., the stage of liver fibrosis may be overestimated. Insome patients with NAFLD, the cut-off values for compensated advancedchronic liver disease may be lower. In causes other than viral hepatitisand NAFLD, the cut-off values are not well established. Sahil Quick MD IMG US ABDOMEN Final Result documented in this encounter Visit Diagnoses Diagnosis Hemochromatosis, hereditary- Primary Eosinophilic esophagitis Hemochromatosis, hereditary Eosinophilic esophagitis documented in this encounter Additional Health Concerns Infection Onset Date Last Indicated Resolved Time COVID-19 08/19/2024 08/19/2024 09/09/2024 1:23 AM EDT Assessment Noted Time PHQ-2 Depression Total Score: 0 10/06/20 1:30 PM EST documented as of this encounter Care Teams Sock Examiner Relationship Specialty Start Date End Date Sahil Coyle MD [address] [place] [address] [email or web address] PCP - General Internal Medicine 08/26/18 04/30/22 Candy Colón MD [address] [place] [address] PCP - General Family Medicine 05/01/22 Sahil Coyle MD [address] [place] [address] [email or web address] Insurance Assigned Provider 03/02/20 03/02/23 Sahil Quick MD [address] [place] [address] Gastroenterology 10/10/20 Thelma Foster MD [address] [place] [address] Dermatology 10/10/20 Scottie Mena DO [address] [place] [address] Cardiology 10/22/21 Candy Colón MD 15 [facility] [address] [place] [address] Insurance Assigned Provider 02/29/24 documented as of this encounter Additional Source Comments The information contained in this document represents components of the legal health record. It is not the complete legal health record.[facility]
--- OUTSIDE RECORDS SUMMARY | 2025-08-12 16:35 | XMS_ITS | Encounter Summary ---
Author Organization [facility] Address [address] [facility] [address] [place] [address] Phone Care Team Providers Care Spraying Machine Operator Name Role Phone Sahil Coyle MD Unavailable [phone] Sahil Quick MD Unavailable [phone] Thelma Foster MD Unavailable [phone] Scottie Mena DO Unavailable [phone] Candy Colón MD Primary Care Provider [phone] Candy Colón MD Unavailable [phone] Encounter Details Date Type Department Care Team (Late st Contact Info) Description 05/21/2022 Procedure Pass [facility] 30 [place] [address] Social History Tobacco Use Types Packs/Day Years [...] work, study, or receive health care? No 04/28/2022 Education Answer Date Recorded Are you interested in help w ith more adult education (for example, completing high school, GED, job training, learning the Maori language, technical skills, or developing parenting skills)? No 04/28/2022 Are you concerned about learning? Not on file 04/28/2022 Not on file 04/28/2022 Not on file 04/28/2022 Food Answer Date Recorded Within the past 6 months we worried whether our food would run out before we got money to buy more. Never True 04/28/2022 Within the past 6 months the food we bought just didn't last and we didn't have enough money to get more. Never True Paying for Meds Answer Date Recorded Do you have trouble paying for medicines? No 04/28/2022 Paying Utility Bills Answer Date Record ed Do you have trouble paying your heating or elect ricity bill? No 04/28/2022 Transportation Answer Date Recorded Has the lack of transportati on kept you from medical appointments or from getting medications? No 04/28/2022 Sex and Gender Information Value Date Recorded Sex Assigned at Male 02/16/2021 10:28 PM EDT Legal Sex Male 10:05 PM EDT Gender Identity Male 02/16/2021 10:28 PM EDT Sexual Orientation Straight 02/16/2021 10 :28 PM EDT documented as of this encounter Plan of Treatment Upcoming Encounters Date Type Department Care Team (Late st Contact Info) Description 08/18/2025 11:45 AM EDT Office Visit [address] [address] Oscar Odell MD [address] [place], [place] [address]s Sports [facility], [place] [address] Meme Baldwin, PT 4 [place], [place] 08/20/2025 8:30 AM EDT Office Visit [address] [address] Oscar Odell MD [address] [place] [address], [place], [place] Meme Baldwin, PT 4 [place], [place] 08/24/2025 10:45 AM EDT Office Visit [address] [address] Oscar Odell MD [address] [place] [address], [place] [address] Meme Baldwin, PT 4 [place] [address] 08/26/2025 9:00 AM EDT Office Visit [address] [address] Oscar Odell MD [address] [place] [address] Sports [facility], [place] [address] Della Reeves, SWITCH OPERATOR [address] [place] [address] 2025 10:30 AM EDT Office Visit [address] [address] Oscar Odell MD [address] [place] [address], [place], [place] [phone] Della Reeves, SWITCH OPERATOR [address] [place] [address] 09/03/2025 8:30 AM EDT Office Visit [address] [phone] Oscar Odell MD [address] [place] [address], [place], [place] [phone] eMme Baldwin, PT 4 [place] [address] 10/18/2025 8:40 AM EST Office Visit [facility] [address] [facility] [address] [place] [address] Candy Colón MD [address] [address] 11/23/2025 8:40 AM EST Office Visit [facility] [address] [facility] [address] [place] [address] Candy Colón MD [address] [address] 11/29/2025 Procedure Pass [place] Admitting Dept - [facility] Department [address] [place] [address] 01/11/2026 8:40 AM EST Office Visit [facility] 22 [facility] 3rd Floor, [address] [place] [address] Jorge Alberto Iglesias MD 22 [facility], [address] [address] documented as of this encounter Visit Diagnoses Not on filedocumented in this encounter Additional Health Concerns Infection Onset Date Last Indicated Resolved Time COVID-19 08/19/2024 08/19/2024 09/09/2024 1:23 AM EDT Assessment Noted Time PHQ-2 Depression Total Score: 0 10/28/20 11:34 AM EST documented as of this encounter Care Teams Spraying Machine Operator Relationship Specialty Start Date End Date Candy Colón MD [address] [place] [address] PCP - General Family Medicine 05/01/22 Sahil oCyle MD [address] [place] [address] [email or web address] Insurance Assigned Provider 03/02/20 03/02/23 Sahil Quick MD [address] [place] [address] 2 [place] [address] [email or web address] Gastroenterology 10/10/20 Thelma Foster MD [address] [address] Dermatology 10/10/20 Scottie Mena DO [address] [address] Cardiology 10/22/21 Candy Colón MD 15 [facility] [address] [place] [address] [email or web address] Insurance Assigned Provider 02/29/24 documented as of this encounter Additional Source Comments The information contained in this document represents components of the legal health record. It is not the complete legal health record.[facility]
--- OUTSIDE RECORDS SUMMARY | 2025-08-12 16:35 | XMS_ITS | Encounter Summary ---
Author Organization [facility] Address [address] [place] [phone] Care Team Providers Care Laundry Tech Name Role Phone Sahil Ryan MD Primary Care Provider Unavaila ble Encounter Details Date Type Department Care Team (Late st Contact Info) Description 06/24/2015 Scanned Document Dermatologic Surgery [address] [id number] Jos Sewell MD [address] [facility] 104 [place] [phone] Social History Tobacco Use Types Packs/Day Years [...] Jos Sewell MD PATHOLOGY/CYTOLOGY ORDERABLES Final Result [facility] [place], [place], [facility] documented in this encounter Visit Diagnoses Not on filedocumented in this encounter Care Teams Laundry Tech Relationship Specialty Start Date End Date Sahil Ryan MD PCP - General Internal Medicine 03/09/13 documented as of this encounter
--- OUTSIDE RECORDS SUMMARY | 2025-08-12 16:35 | XMS_ITS | Encounter Summary ---
Author Organization [facility] Address [address] [place] [address] Phone Care Team Providers Care Infrastructure Software Engineer Name Role Phone Sahil Coyle MD Unavailable [phone] Sahil Quick MD Unavailable [phone] Thelma Foster MD Unavailable [phone] Scottie Mena DO Unavailable [phone] Candy Colón MD Primary Care Provider [phone] Candy Colón MD Unavailable [phone] Encounter Details Date Type Department Care Team (Late st Contact Info) Description 11/28/2022 Procedure Pass [facility], [facility] Scan - [address] [address] Social History Tobacco Use Types Packs/Day Years [...] work, study, or receive health care? No 10/28/2022 Education Answer Date Recorded Are you interested in help w ith more adult education (for example, completing high school, GED, job training, learning the Somali language, technical skills, or developing parenting skills)? No 10/28/2022 Food Answer Date Recorded Within the past 6 months we worried whether our food would run out before we got money to buy more. Never True 10/28/2022 Within the past 6 months the food we bought just didn't last and we didn't have enough money to get more. Never True Residential Stability Answer Date Recor ded What is your housing situation today? I have drew malik 10/28/2022 How many times have you move d in the past 12 months? Zero (I did not move) 10/28/2022 Paying for Meds Answer Date Recorded Do you have trouble paying for medicines? No 10/28/2022 Paying Utility Bills Answer Date Record ed Do you have trouble paying your heating or elect ricity bill? No 10/28/2022 Transportation Answer Date Recorded Has the lack of transportati on kept you from medical appointments or from getting medications? No 10/28/2022 Unemployment Answer Date Recorded Are you currently unemployed or working on a part-time or temporary basis, and looking for work? No 10/28/2022 Sex and Gender Information Value Date Recorded Sex Assigned at Male 02/16/2021 10:28 PM EDT Legal Sex Male 10:05 PM EDT Gender Identity Male 02/16/2021 10:28 PM EDT Sexual Orientation Straight 02/16/2021 10 :28 PM EDT documented as of this encounter Plan of Treatment Upcoming Encounters Date Type Department Care Team (Late st Contact Info) Description 08/18/2025 11:45 AM EDT Office Visit [address] [address] Oscar Odell MD [address] [place], [place] [address]s Sports Medicine, [place] [address] Meme Baldwin, PT 4 [place], [place] 08/20/2025 8:30 AM EDT Office Visit [address] [address] Oscar Odell MD [address] [place] [address] Sports [facility], [place] [address] Meme Baldwin, PT 4 [place], [place] 08/24/2025 10:45 AM EDT Office Visit [address] [address] Oscar Odell MD [address] [place], [place] [address]s Sports [facility], [place], [place] Meme Baldwin, PT [address] [place], [place] 08/26/2025 9:00 AM EDT Office Visit [address] [phone] Oscar Odell MD [address] [place] [address] Sports [facility], [place], [place] Della Reeves PTA [address] [place] [address] 2025 10:30 AM EDT Office Visit [address] [address] Oscar Odell MD [address] [place] [address], [place], [place] Della Reeves CONFECTIONERY LABORATORY MANAGER [address] [place] [address] 09/03/2025 8:30 AM EDT Office Visit [address] [phone] Oscar Odell MD [address] [place] [address], [place], [place] Meme Baldwin, PT 4 [place] [address] 10/18/2025 8:40 AM EST Office Visit [facility] 15 [facility] [address] [place] [address] Candy Colón MD 15 [facility]. [address] [place] [address] 11/23/2025 8:40 AM EST Office Visit [facility] 15 [facility] [address] [place] [address] Candy Colón MD [address] [place] [address] 11/29/2025 Procedure Pass [place] Admitting Dept - Virtual Department [address] [place] [address] 01/11/2026 8:40 AM EST Office Visit [facility] 22 [facility] 3rd Floor, [address] [place] [address] Jorge Alberto Iglesias MD [address] [place] [address], [address] [address] [email or web address] documented as of this encounter Visit Diagnoses Not on filedocumented in this encounter Additional Health Concerns Infection Onset Date Last Indicated Resolved Time COVID-19 08/19/2024 08/19/2024 09/09/2024 1:23 AM EDT Assessment Noted Time PHQ-2 Depression Total Score: 0 10/28/20 22 11:34 AM EST documented as of this encounter Care Teams Infrastructure Software Engineer Relationship Specialty Start Date End Date Candy Colón MD 15 [facility]. [address] [place] [address] [email or web address] PCP - General Family Medicine 05/01/22 Sahil Coyle MD 90 [facility] [address] [place] [address] [email or web address] Insurance Assigned Provider 03/02/20 03/02/23 Sahil Quick MD [address] [place] [address] 2 [place] [address] [email or web address] Gastroenterology 10/10/20 Thelma Foster MD [address] [address] Dermatology 10/10/20 Scottie Mena DO [address] [address] [email or web address] Cardiology 10/22/21 Candy Colón MD 15 [facility] [address] [place] [address] [email or web address] Insurance Assigned Provider 02/29/24 documented as of this encounter Additional Source Comments The information contained in this document represents components of the legal health record. It is not the complete legal health record.[facility]
--- OUTSIDE RECORDS SUMMARY | 2025-08-12 16:35 | XMS_ITS | Encounter Summary ---
Author Organization [facility] Address [address] [place] [address] Phone Care Team Providers Care Wire Communications Engineer Name Role Phone Sahil Quick MD Unavailable [phone] Thelma Foster MD Unavailable [phone] Scottie Mena DO Unavailable [phone] Candy Colón MD Primary Care Provider [phone] Candy Colón MD Unavailable [phone] Encounter Details Date Type Department Care Team (Late st Contact Info) Description 02/22/2025 Procedure Pass Echo Lab [place] [place] [id number] Social History Tobacco Use Types Packs/Day Years [...] housing situation today? I have drew malik 11/05/2024 How many times have you move [...] Description 08/18/2025 11:45 AM EDT Office Visit [facility] [address] [place] [address] Oscar Odell MD 4 [facility], [place] [address] Meme Baldwin, PT 4 [place] [address] 08/20/2025 8:30 AM EDT Office Visit [address] [address] Oscar Odell MD [address] [place], [place] [address]s [facility], [place] [address] Meme Baldwin, PT 4 [place] [address] 08/24/2025 10:45 AM EDT Office Visit [address] [address] Oscar Odell MD [address] [place] [address] [facility], [place] [address] Meme Baldwin, PT 4 [place] [address] 08/26/2025 9:00 AM EDT Office Visit [address] [address] Oscar Odell MD [address] [place] [address], [place], [place] [phone] Della Reeves PTA [address] [place] [address] 2025 10:30 AM EDT Office Visit [address] [phone] Oscar Odell MD [address] [place] [address] [facility] [place] [place] [address] Della Reeves PTA [address] [place] [address] 09/03/2025 8:30 AM EDT Office Visit [facility] [address] [place] [address] [id number] Oscar Odell MD [address] [place] [address] Orthopedics [facility] [place], [place] [address] Meme Baldwin, PT 4 [place], [place] [phone] 10/18/2025 8:40 AM EST Office Visit [facility] 15 [facility] [address] [place] [address] Candy Colón MD [address] [place] [address] 11/23/2025 8:40 AM EST Office Visit [facility] 15 [facility] [address] [place] [address] Candy Colón MD [address] [place] [address] 11/29/2025 Procedure Pass OR Admitting Dept - Virtual Department [address] [place] [address] 01/11/2026 8:40 AM EST Office Visit [facility] 22 [facility] 3rd Floor, [address] [place] [address] Jorge Alberto Iglesias MD [address] [place] [address], [address] [place] [address] [email or web address] documented as of this encounter Visit Diagnoses Not on filedocumented in this encounter Additional Health Concerns Assessment Noted Time PHQ-9 Depression Total Score: 1 12/03/19 25 9:57 AM EST PHQ-2 Depression Total Score: 0 11/05/20 24 10:03 AM EST documented as of this encounter Care Teams Wire Communications Engineer Relationship Specialty Start Date End Date Candy Colón MD [address] [place] [address] PCP - General Family Medicine 05/01/22 Sahil Quick MD [address] [place] [address] Gastroenterology 10/10/20 Thelma Foster MD [address] [place] [address] Dermatology 10/10/20 Scottie Mean DO [address], [place] [address] Cardiology 10/22/21 Candy Colón MD [address] [place] [address] Insurance Assigned Provider 02/29/24 documented as of this encounter Additional Source Comments The information contained in this document represents components of the legal health record. It is not the complete legal health record.[facility]
--- OUTSIDE RECORDS SUMMARY | 2025-08-12 16:35 | XMS_ITS | Encounter Summary ---
Author Organization [facility] Address [address] [place] [address] Phone Care Team Providers Care Student Activities Director Name Role Phone Sahil Coyle MD Unavailable [phone] Sahil Quick MD Unavailable Thelma Foster MD Unavailable [phone] Scottie Mena DO Unavailable [phone] Candy Colón MD Primary Care Provider [phone] Candy Colón MD Unavailable [phone] Encounter Details Date Type Department Care Team (Late st Contact Info) Description 12/03/2022 Procedure Pass Echo Lab [facility] [place] [address] Social History Tobacco Use Types Packs/Day [...] high school, GED, job training, learning the Khmer language, technical skills, or developing parenting skills)? [...] Description 08/18/2025 11:45 AM EDT Office Visit [address] [address] Oscar Odell MD [address] [place], [place] [address]s [facility], [place] [address] Meme Baldwin, PT 4 [place], [place] 08/20/2025 8:30 AM EDT Office Visit [address] [phone] Oscar Odell MD [address] [place] [address] Sports [facility], [place], [place] Meme Baldwin, PT 4 [place] [address] 08/24/2025 10:45 AM EDT Office Visit [address] [address] Oscar Odell MD [address] [place], [place] [address]s [facility], [place] [address] Meme Baldwin, PT 4 [place] [address] 08/26/2025 9:00 AM EDT Office Visit [address] [address] Oscar Odell MD [address] [place] [address], [place] [address] Della Reeves EXTRACORPOREAL CIRCULATION SPECIALIST [address] [place] [address] 2025 10:30 AM EDT Office Visit [address] [address] Oscar Odell MD [address] [place], [place] [address]s [facility], [place] [address] Della Reeves EXTRACORPOREAL CIRCULATION SPECIALIST [address] [place] [address] 09/03/2025 8:30 AM EDT Office Visit [address] [address] Oscar Odell MD [address] [place] [address], [place] [address] Meme Baldwin, PT 4 [place] [address] [email or web address] 10/18/2025 8:40 AM EST Office Visit [facility] [address] [facility] [address] [place] [address] Candy Colón MD [address] [place] [address] 11/23/2025 8:40 AM EST Office Visit [facility] [address] [address] Candy Colón MD [address] [place] [address] 11/29/2025 Procedure Pass OR Admitting Dept - Virtual Department [address] [place] [address] 01/11/2026 8:40 AM EST Office Visit [facility] 22 [facility] 3rd Floor, [address] [place] [address] Jorge Alberto Iglesias MD [address] [place] [address] [email or web address] documented as of this encounter Visit Diagnoses Not on filedocumented in this encounter Additional Health Concerns Infection Onset Date Last Indicated Resolved Time COVID-19 08/19/2024 08/19/2024 09/09/2024 1:23 AM EDT Assessment Noted Time PHQ-2 Depression Total Score: 0 10/28/20 11:34 AM EST documented as of this encounter Care Teams Student Activities Director Relationship Specialty Start Date End Date Candy Colón MD [address] [place] [address] [email or web address] PCP - General Family Medicine 05/01/22 Sahil Coyle MD 90 [facility] 101 [place] [address] [email or web address] Insurance Assigned Provider 03/02/20 03/02/23 Sahil Quick MD [address] [facility] 2 [place] [address] [email or web address] Gastroenterology 10/10/20 Thelma Foster MD [address] [address] Dermatology 10/10/20 Scottie Mena DO [address] [address] [email or web address] Cardiology 10/22/21 Candy Colón MD 15 [facility] 201 [place] [address] [email or web address] Insurance Assigned Provider 02/29/24 documented as of this encounter Additional Source Comments The information contained in this document represents components of the legal health record. It is not the complete legal health record.[facility]
--- OUTSIDE RECORDS SUMMARY | 2025-08-12 16:35 | XMS_ITS | Encounter Summary ---
Author Organization [facility] Address [address] [facility] [address] [place] [address] Phone Care Team Providers Care Electrical Tech/Project Manager Name Role Phone Sahil Coyle MD Unavailable [phone] Sahil Quick MD Unavailable [phone] Thelma Foster MD Unavailable [phone] Scottie Mena DO Unavailable [phone] Candy Colón MD Primary Care Provider [phone] Candy Colón MD Unavailable [phone] Encounter Details Date Type Department Care Team (Latest Contact Info) Description 11/14/2022 Transcribe Orders Virtual Department 30 [place] [address] Sahil Quick MD [address] [place] [address] [email or web address] Splenomegaly (Primary Dx) Social History Tobacco Use Types [...] high school, GED, job training, learning the Czech language, technical skills, or developing parenting skills)? [...] housing situation today? I have drew sing 10/28/2022 How many times have you move [...] Description 08/18/2025 11:45 AM EDT Office Visit [address] [address] Oscar Odell MD [address] [place] [address] [facility] [place] [address] Meme Baldwin PT [address] [place] [address] 08/20/2025 8:30 AM EDT Office Visit [address] [address] Oscar Odell MD [address] [place] [address] Orthopedics Sports [facility], [place] [address] Meme Baldwin, PT 4 [place] [address] 08/24/2025 10:45 AM EDT Office Visit [address] [address] Oscar Odell MD [address] [place] [address] Orthopedics Sports [facility], [place] [address] Meme Baldwin, PT 4 [place] [address] 08/26/2025 9:00 AM EDT Office Visit [address] [address] Oscar Odell MD [address] [place] [address] Sports [facility], [place] [address] Della Reeves, AGRICULTURE LABORER [address] [place] [address] 2025 10:30 AM EDT Office Visit [address] [address] Oscar Odell MD [address] [place] [address] Orthopedics Sports [facility], [place] [address] Della Reeves, AGRICULTURE LABORER [address] [place] [address] 09/03/2025 8:30 AM EDT Office Visit [address] [phone] Oscar Odell MD 4 [facility] [place] [address] Meme Baldwin, PT 4 [place] [address] 10/18/2025 8:40 AM EST Office Visit [facility] 15 [facility] [address] [place] [address] Candy Colón MD [address] [address] 11/23/2025 8:40 AM EST Office Visit [facility] 15 [facility] [address] [place] [address] Candy Colón MD [address] [place] [address] 11/29/2025 Procedure Pass OR Admitting Dept - Virtual Department [address] [place] [address] 01/11/2026 8:40 AM EST Office Visit [facility] [address] [place] [address] 3rd Floor, [address] [place] [address] Jorge Alberto Iglesias MD 22 [facility], [address] [place] [address] [email or web address] documented as of this encounter Results * US ABDOMEN COMPLETE (ADULT) (11/23/2022 10:30 AM EST) Anatomical Region Laterality Modality Abdomen Ultrasound 11/23/2022 2:17 PM EST Impressions 11/23/2022 2:18 PM EST Spleen is poorly visualized. There appears to be multiple echogenic foci in the spleen which could represent granulomas. The spleen measures 8.9 cm. Recommendations: Abdomen CT This report has been forwarded to an automated communication system which will electronically notify appropriate providers of potentially important findings. Narrative 11/23/2022 2:18 PM EST US ABDOMEN COMPLETE (ADULT) TECHNIQUE: Abdominal Ultrasound Complete. COMPARISON: Right upper quadrant ultrasound 11/10/2019 FINDINGS: Liver: Normal. No focal lesions. Main Portal Vein: Patent with normal direction of flow. Gallbladder: Normal. No gallstones or gallbladder wall thickening. Biliary: Normal. No intrahepatic or extrahepatic biliary ductal dilatation. The common bile duct measures 3 mm. Pancreas: Incompletely visualized. Spleen: Spleen is poorly visualized. There appears to be multiple echogenic foci in the spleen which could represent granulomas. The spleen measures 8.9 cm. Kidneys: Normal. No stones or hydronephrosis. Aorta: Normal, where visualized sonographically. IVC: Normal intrahepatic segment. Procedure Note Femi King MD, JULIO - 11/23/2022 US ABDOMEN COMPLETE (ADULT) TECHNIQUE: Abdominal Ultrasound Complete. COMPARISON: Right upper quadrant ultrasound 11/10/2019 FINDINGS: Liver: Normal. No focal lesions. Main Portal Vein: Patent with normal direction of flow. Gallbladder: Normal. No gallstones or gallbladder wall thickening. Biliary: Normal. No intrahepatic or extrahepatic biliary ductaldilatation. The common bile duct measures 3 mm. Pancreas: Incompletely visualized. Spleen: Spleen is poorly visualized. There appears to be multipleechogenic foci in the spleen which could represent granulomas. The spleenmeasures 8.9 cm. Kidneys: Normal. No stones or hydronephrosis. Aorta: Normal, where visualized sonographically. IVC: Normal intrahepatic segment. IMPRESSION: Spleen is poorly visualized. There appears to be multiple echogenic fociin the spleen which could represent granulomas. The spleen measures 8.9cm. Recommendations: Abdomen CT This report has been forwarded to an automated communication system whichwill electronically notify appropriate providers of potentially importantfindings. Sahil Quick MD IMG US ABDOMEN Final Result documented in this encounter Visit Diagnoses Diagnosis Splenomegaly- Primary Splenomegaly documented in this encounter Additional Health Concerns Infection Onset Date Last Indicated Resolved Time COVID-19 08/19/2024 08/19/2024 09/09/2024 1:23 AM EDT Assessment Noted Time PHQ-2 Depression Total Score: 0 10/28/20 11:34 AM EST documented as of this encounter Care Teams Electrical Tech/Project Manager Relationship Specialty Start Date End Date Candy Colón MD [address] [place] [address] 201 [place] [address] PCP - General Family Medicine 05/01/22 Sahil Coyle MD [address] [place] [address] [email or web address] Insurance Assigned Provider 03/02/20 03/02/23 Sahil Quick MD [address] [place] [address] [email or web address] Gastroenterology 10/10/20 Thelma Foster MD [address], [place] [address] Dermatology 10/10/20 Scottie Mena DO [address] [place] [address] Cardiology 10/22/21 Candy Colón MD [address] [place] [address] Insurance Assigned Provider 02/29/24 documented as of this encounter Additional Source Comments The information contained in this document represents components of the legal health record. It is not the complete legal health record.[facility]
--- OUTSIDE RECORDS SUMMARY | 2025-08-12 16:36 | XMS_ITS | Encounter Summary ---
Author Organization [facility] Address [address] [place] [address] Phone Care Team Providers Care Territory Sales Manager Medical Name Role Phone Sahil Quick MD Unavailable [phone] Thelma Foster MD Unavailable [phone] Scottie Mena DO Unavailable [phone] Candy Colón MD Primary Care Provider [phone] Candy Colón MD Unavailable [phone] Encounter Details Date Type Department Care Team (Late st Contact Info) Description 10/15/2024 Procedure Pass [facility] 30 [place] [address] Social History Tobacco Use Types Packs/Day Years [...] Description 08/18/2025 11:45 AM EDT Office Visit [facility] [address] [place] [address] Oscar Odell MD [address] [place], [place] [address]s Sports [facility] [place], [place] [address] Meme Baldwin, PT 4 [place] [address] 08/20/2025 8:30 AM EDT Office Visit [address] [address] Oscar Odell MD [address] [place], [place] [address]s Sports [facility] [place], [place] [address] Meme Baldwin, PT 4 [place] [address] 08/24/2025 10:45 AM EDT Office Visit [address] [address] Oscar Odell MD [address] [place] [address] Sports [facility] [place], [place] [address] Meme Baldwin, PT 4 [place] [address] 08/26/2025 9:00 AM EDT Office Visit [address] [address] Oscar Odell MD [address] [place] [address], [place] [address] Della Reeves PTA [address] [place] [address] 2025 10:30 AM EDT Office Visit [address] [address] Oscar Odell MD [address] [facility] [place] [address] Della Reeves PTA [address] [place] [address] 09/03/2025 8:30 AM EDT Office Visit [facility] [address] [place] [address] Oscar Odell MD [address] [place] [address] [facility] [place] [address] Meme Baldwin, PT [address] [place] [address] 10/18/2025 8:40 AM EST [facility] Visit [facility] [address] [facility] [address] [place] [address] Candy Colón MD [address] [place] [address] 11/23/2025 8:40 AM EST Office Visit [facility] 15 [facility] [address] [place] [address] Candy Colón MD [address] [place] [address]. [address] [place] [address] 11/29/2025 Procedure Pass OR Admitting Dept - Virtual Department [address] [place] [address] 01/11/2026 8:40 AM EST Office Visit [facility] 22 [facility] 3rd Floor, [address] [place] [address] Jorge Alberto Iglesias MD 22 [facility], [address] [place], [place] [phone] [email or web address] documented as of this encounter Visit Diagnoses Not on filedocumented in this encounter Additional Health Concerns Assessment Noted Time PHQ-2 Depression Total Score: 0 11/03/20 23 1:09 PM EST documented as of this encounter Care Teams Territory Sales Manager Medical Relationship Specialty Start Date End Date Candy Colón MD 15 [facility] [address] [place] [address] [email or web address] PCP - General Family Medicine 05/01/22 Sahil Quick MD [address] [place] [address] [email or web address] Gastroenterology 10/10/20 Thelma Foster MD [address], [place] [address] Dermatology 10/10/20 Scottie Mena DO [address], [place] [address] [email or web address] Cardiology 10/22/21 Candy Colón MD [address] [address] [email or web address] Insurance Assigned Provider 02/29/24 documented as of this encounter Additional Source Comments The information contained in this document represents components of the legal health record. It is not the complete legal health record.[facility]
--- OUTSIDE RECORDS SUMMARY | 2025-08-12 16:36 | XMS_ITS | Clinical Summary ---
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 the pulmonary artery pressure is normal on the study. 5. Normal pericardium and when compared to the prior echocardiogram done December 23, 2024, the left ventricular ejection fraction is the same and the degree of mitral regurgitation is less on the study although again image quality was relatively poor. Left Ventricle The left ventricle is normal in size. There is normal wall thickness. There is mildly reduced left ventricular systolic function. The LV ejection fraction is 45% (visually estimated). There is diffuse hypokinesis. There are regional wall motion abnormalities, affecting the septal wall. There is abnormal diastolic function. There is Grade III diastolic dysfunction. The E/A ratio is 2.6. The e' septal wave velocity is 7.5 cm/s. The e' lateral wave velocity is 11.0 cm/s. The average E/e' ratio is 8.4. Right Ventricle The right ventricle is mildly dilated. The RV basal dimension is 52 mm. There is mildly reduced right ventricular systolic function. TAPSE is 15 mm. RV S' wave is 9.3 cm/s. Left Atrium The left atrium is mildly dilated. The left atrial volume is 83 mL. The left atrial volume index by BSA is 38 mL/m2. Right Atrium The right atrium is mildly dilated. The right atrial area is 21 cm2. The right atrial area index is 10 cm2/m2. The IVC is normal in size with normal inspiratory collapse. This is consistent with normal RA pressure. The IVC diameter is 20 mm (normal: <= 21 mm). 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 There is mitral valve thickening. There is no mitral stenosis. There is mild mitral regurgitation. Tricuspid Valve The tricuspid valve appears normal. There is no tricuspid stenosis. There is trace to mild tricuspid regurgitation. The RV systolic pressure was calculated at 10 mmHg (using TR peak velocity of 1.3 m/s and assuming an RA pressure of 3 mmHg). Aortic Valve There is leaflet thickening without stenosis. The aortic valve peak velocity is 0.7 m/s. The peak and mean aortic valve gradients are 2 mmHg and 1 mmHg respectively. There is no aortic regurgitation. The visualized portions of the thoracic aorta appear normal in size. Pulmonic Valve The pulmonic valve appears normal. Pericardium There is no pericardial effusion. There are no pleural effusions. General Findings The study was technically difficult (4). Study quality explanation: body habitus. Exam done supine due to hip injury with off axis orientation. Technique(s) used in the evaluation: Color flow Doppler and Spectral Doppler. The predominant rhythm during the study was sinus. Comparison Findings Compared to prior study on 12/23/2024, IAS/IVS The interatrial septum appears normal. There is no evidence of patent foramen ovale (PFO). The interventricular septum appears normal. There is no evidence of a ventricular septal defect. us Jorge Alberto Iglesias MD CV ECHO ORDERABLES Final Resu lt * XR HIP 2 VW LEFT PLUS PELVIS (06/17/2025 3:46 PM EDT) Anatomical Region Laterality Modality Hip Left Computed Radiogr aphy 06/18/2025 8:22 AM EDT Impressions 06/18/2025 8:31 AM EDT Severe left hip degenerative changes. Narrative 06/18/2025 8:31 AM EDT XR HIP 2 VW LEFT PLUS PELVIS Referring clinician's provided indication for this examination in [facility]: Pain; osteoarthritis, needs updated imaging for orthopedics consult COMPARISON: XR HIP 1 VW LEFT FINDINGS: Pelvis: No displaced fracture. Mild degenerative changes of the sacroiliac joints and pubic symphysis. Frontal evaluation of the right hip demonstrates moderate degenerative changes. Left hip: No displaced fracture. Normal alignment. Severe degenerative changes with superior joint space narrowing with [id number] contact, subchondral sclerosis and cystic change, and osteophytosis.. Procedure Note Kendall Brumfield MD - 06/18/2025 XR HIP 2 VW LEFT PLUS PELVIS Referring clinician's provided indication for this examination in [facility]:Pain; osteoarthritis, needs updated imaging for orthopedics consult COMPARISON: XR HIP 1 VW LEFT FINDINGS: Pelvis: No displaced fracture. Mild degenerative changes of the sacroiliacjoints and pubic symphysis. Frontal evaluation of the right hipdemonstrates moderate degenerative changes. Left hip: No displaced fracture. Normal alignment. Severe degenerativechanges with superior joint space narrowing with [id number] contact,subchondral sclerosis and cystic change, and osteophytosis.. IMPRESSION: Severe left hip degenerative changes. Candy Colón MD IMG XR PELVIS Final Result * Hepatitis C antibody, qualitative (11/11/2019) HEPATITIS C ANTIBODY negative 11/11/2019 Historical Provider LAB BLOOD ORDERABLES Ira l Result from Last 3 Months or Most Recently Relevant to Health Maintenance Insurance MEDICARE PART A & B [facility] MEDICARE SUPPLEMENT MEDICARE PART A & B Member Subscriber Plan / Payer (Ef fective 2013-Present) Name:Clinton Ling Member ID:[id number] Relation to Subscriber:Self Name:Clinton Ling Subscriber ID:[id number] Payer ID:[id number] Group ID:Not on file Type:Medicare Address: [employer] [address] MEDICARE SUPPLEMENT MEDICARE PART A & B [facility] MEDICARE SUPPLEMENT MEDICARE PART A & B MEDICARE SUPPLEMENT MEDICARE PART A & B MEDICARE SUPPLEMENT MEDICARE PART A & B [facility] MEDICARE SUPPLEMENT MEDICARE PART A & B [facility] MEDICARE SUPPLEMENT MEDICARE PART A & B [facility] MEDICARE SUPPLEMENT MEDICARE PART A & B [facility] MEDICARE SUPPLEMENT Advance Directives For more information, please contact: [phone] (9AM - 5PM [facility], Saturday-Saturday) Documents on File Type Date Recorded Patient Software Qa Manager Expl anation MOLST 11/04/2023 [employer] Healthcare Proxy 08/15/2021 Health Care Proxy (change address 07/20/2021) Care Teams Control Room Agent Relationship Specialty Start Date End Date Candy Colón MD [address] [place] [id number] PCP - General Family Medicine 05/01/22 Sahil Quick MD [address] [place] [id number] Gastroenterology 10/10/20 Thelma Foster MD [address] [place] [id number] Dermatology 10/10/20 Scottie Mena DO [address] [address] [email or web address] Cardiology 10/22/21 Candy Colón MD [address] [facility] [place] [place] [address] [email or web address] Insurance Assigned Provider 02/29/24 Additional Source Comments The information contained in this document represents components of the legal health record. It is not the complete legal health record.[facility]
[2025-08-12 17:34] LABS: Ferritin 19 ng/mL (20-250)
== END 2025-08-12 14:57 | disposition home or self-care (01) ==
LOC: HO.BBR 14:56
PROVIDERS: Visit Provider Internal Medicine Gastroenterology
DX: E83.110 Hereditary hemochromatosis (principal)
CPT/HCPCS: 36415; 82728